=== PATIENT | female | born 1955 | race Caucasian/White ===

== ENCOUNTER 2017-06-13 18:19 | Inpatient (IN) | payer MEDICAID ==
[~2017-06-13] VITALS: Ht 157.5 cm; Wt 54.2 kg
[2017-06-13] MEDS ORDERED: VARE0.5T PO (18:36)
[2017-06-13] MEDS ORDERED: NAPR-874 PO (18:37)
[2017-06-13] MEDS ORDERED: FAMOTIDINE 20 MG/2 ML IVP ONE (19:00)
[2017-06-13] MEDS ORDERED: DICYCLOMINE 10 MG/ML, 2ML IM ONE (19:00)
[2017-06-13] MEDS ORDERED: SODIUM CHLORIDE 0.9% 1,000ML IVBOLUS ONE ×2 (19:00→21:30)
[2017-06-13] MEDS ORDERED: FAMOTIDINE 20 MG/2 ML ONE (19:27)
[2017-06-13 19:29] LABS: HEMATOCRIT 42.1 % (34.6-47.8); HEMOGLOBIN 14.1 g/dL (11.7-16.4)
[2017-06-13 19:37] LABS: BLOOD UREA NITROGEN 16 mg/dL (7-18)
[2017-06-13 19:42] LABS: ASPARTATE AMINO TRANSFERASE 188 U/L (15-37)
[2017-06-13] MEDS ORDERED: HYDROmorphone 1 MG/ML, 1ML IV ONE (20:30)
[2017-06-13] MEDS ORDERED: HYDROmorphone 1 MG/ML, 1ML ONE (20:34)
[2017-06-13 21:50] LABS: PH, VENOUS 7.236 pH (7.320-7.420)
[2017-06-13] MEDS ORDERED: D5%-0.45% NACL 1,000 ML IV SCH (22:30)
[2017-06-13] MEDS ORDERED: LORazepam 2 MG/ML, 1ML IVPush PRN (23:30)
[2017-06-13] MEDS ORDERED: METOCLOPRAMIDE 5 MG/ML, 2ML IVPush PRN (23:30)
[2017-06-13] MEDS ORDERED: PROMETHAZINE 25 MG/ML, 1ML IM PRN (23:30)
[2017-06-13] MEDS ORDERED: OMNIPAQUE 350 MG/ML, 100ML BOTTLE ONE (23:54)
[2017-06-14] MEDS: SODIUM CHLORIDE 0.9% 1,000 ML IV SCH ×2 (00:59→21:07)
[2017-06-14] MEDS: ONDANSETRON 2MG/ML, 2ML IVPush PRN ×5 (01:11→21:14)
[2017-06-14] MEDS: HYDROmorphone 2 MG/ML, 1ML IVPush PRN ×7 (01:12→21:14)
[2017-06-14 01:18] VITALS: BP 146/78
[2017-06-14 01:31] LABS: BLOOD UREA NITROGEN 12 mg/dL (7-18)
[2017-06-14] MEDS: NICOTINE 7 MG/24 HR PATCH.TD24 TD SCH ×2 (01:34→23:52)
[2017-06-14 03:06] LABS: PATH.CAST-FLAG NOT PRESENT; SPERM-FLAG NOT PRESENT; SRC-FLAG NOT PRESENT; XTAL-FLAG NOT PRESENT; YLC-FLAG NOT PRESENT
[2017-06-14 06:04] LABS: HEMATOCRIT 35.4 % (34.6-47.8); HEMOGLOBIN 12.1 g/dL (11.7-16.4); WHITE BLOOD COUNT 4.7 x10^3/uL (3.4-10)
[2017-06-14 06:19] LABS: ASPARTATE AMINO TRANSFERASE 107 U/L (15-37); BLOOD UREA NITROGEN 10 mg/dL (7-18)
[2017-06-14] MEDS ORDERED: POTASSIUM PHOSPHATE 44 MEQ in SODIUM CHLORIDE 0.9% 500 ML IV ONE (06:30)
[2017-06-14 07:10] VITALS: BP 117/70
[2017-06-14] MEDS: ENOXAPARIN 40 MG/0.4 ML SQ SCH (07:50)
[2017-06-14 15:10] VITALS: BP 115/75
[2017-06-14] MEDS: metroNIDAZOLE 500 MG TABLET PO SCH (17:45)
[2017-06-14 20:18] VITALS: BP 122/78
[2017-06-14] MEDS: LACTOBACILLUS CHEW TABLET PO SCH (21:07)
[2017-06-15 00:33] VITALS: BP 128/73
[2017-06-15] MEDS: HYDROmorphone 2 MG/ML, 1ML IVPush PRN ×7 (00:41→21:48)
[2017-06-15] MEDS: metroNIDAZOLE 500 MG TABLET PO SCH ×3 (00:43→16:41)
[2017-06-15] MEDS: SODIUM CHLORIDE 0.9% 1,000 ML IV SCH ×2 (03:59→09:35)
[2017-06-15] MEDS: ONDANSETRON 2MG/ML, 2ML IVPush PRN ×4 (03:59→18:34)
[2017-06-15 05:59] LABS: HEMATOCRIT 32.1 % (34.6-47.8); HEMOGLOBIN 10.9 g/dL (11.7-16.4); WHITE BLOOD COUNT 3.8 x10^3/uL (3.4-10)
[2017-06-15 06:04] VITALS: BP 131/64
[2017-06-15 06:11] LABS: BLOOD UREA NITROGEN 7 mg/dL (7-18)
[2017-06-15 06:22] LABS: ASPARTATE AMINO TRANSFERASE 73 U/L (15-37)
[2017-06-15] MEDS: LACTOBACILLUS CHEW TABLET PO SCH ×3 (08:07→21:48)
[2017-06-15] MEDS: ENOXAPARIN 40 MG/0.4 ML SQ SCH (08:08)
[2017-06-15] MEDS ORDERED: MAGNESIUM SULFATE PMX 2GM/50ML 50 ML IV ONE (09:00)
[2017-06-15] MEDS ORDERED: POTASSIUM CHLORIDE 40 MEQ in SODIUM CHLORIDE 0.9% 500 ML IV ONE (09:00)
[2017-06-15] MEDS ORDERED: POTASSIUM PHOSPHATE 44 MEQ in SODIUM CHLORIDE 0.9% 500 ML IV ONE (09:00)
[2017-06-15 15:30] VITALS: BP 141/75
[2017-06-15 19:56] VITALS: BP 145/71
[2017-06-15] MEDS: NICOTINE 7 MG/24 HR PATCH.TD24 TD SCH (23:48)
[2017-06-16] MEDS: metroNIDAZOLE 500 MG TABLET PO SCH ×3 (00:44→16:35)
[2017-06-16] MEDS: HYDROmorphone 2 MG/ML, 1ML IVPush PRN ×6 (00:44→21:18)
[2017-06-16 00:54] VITALS: BP 147/78
[2017-06-16] MEDS: ONDANSETRON 2MG/ML, 2ML IVPush PRN ×2 (03:53→13:38)
[2017-06-16 05:21] LABS: ASPARTATE AMINO TRANSFERASE 67 U/L (15-37); BLOOD UREA NITROGEN 2 mg/dL (7-18)
[2017-06-16 05:23] LABS: HEMATOCRIT 31.3 % (34.6-47.8); HEMOGLOBIN 10.9 g/dL (11.7-16.4); WHITE BLOOD COUNT 3.6 x10^3/uL (3.4-10)
[2017-06-16] MEDS: SODIUM CHLORIDE 0.9% 1,000 ML IV SCH ×2 (07:54→12:43)
[2017-06-16] MEDS: LACTOBACILLUS CHEW TABLET PO SCH ×3 (08:14→21:17)
[2017-06-16] MEDS: ENOXAPARIN 40 MG/0.4 ML SQ SCH (08:14)
[2017-06-16 08:20] VITALS: BP 141/79
[2017-06-16] MEDS ORDERED: MAGNESIUM SULFATE PMX 2GM/50ML 50 ML IV ONE (10:00)
[2017-06-16] MEDS: POTASSIUM ACID PHOSPHATE 500 MG TABLET.SOL PO SCH ×3 (11:15→21:17)
[2017-06-16] MEDS: POTASSIUM CHLORIDE 20 MEQ TAB.ER.PRT PO SCH ×2 (11:15→16:35)
[2017-06-16] MEDS: OXYcodone IR 5MG TABLET PO PRN (13:05)
[2017-06-16 16:00] VITALS: BP 145/73
[2017-06-16 19:37] VITALS: BP 139/74
[2017-06-17] MEDS: OXYcodone IR 5MG TABLET PO PRN ×4 (00:10→14:34)
[2017-06-17] MEDS: NICOTINE 7 MG/24 HR PATCH.TD24 TD SCH (00:10)
[2017-06-17] MEDS: metroNIDAZOLE 500 MG TABLET PO SCH ×3 (00:10→15:49)
[2017-06-17 00:57] VITALS: BP 153/86
[2017-06-17] MEDS: POTASSIUM ACID PHOSPHATE 500 MG TABLET.SOL PO SCH (03:57)
[2017-06-17] MEDS: HYDROmorphone 2 MG/ML, 1ML IVPush PRN (03:57)
[2017-06-17 05:43] LABS: BLOOD UREA NITROGEN 1 mg/dL (7-18)
[2017-06-17 06:00] LABS: HEMATOCRIT 32.9 % (34.6-47.8); HEMOGLOBIN 11.3 g/dL (11.7-16.4); WHITE BLOOD COUNT 3.7 x10^3/uL (3.4-10)
[2017-06-17 07:30] VITALS: BP 157/85
[2017-06-17] MEDS: POTASSIUM CHLORIDE 20 MEQ TAB.ER.PRT PO SCH (07:40)
[2017-06-17] MEDS: LACTOBACILLUS CHEW TABLET PO SCH ×2 (07:41→15:49)
[2017-06-17] MEDS: ENOXAPARIN 40 MG/0.4 ML SQ SCH (07:44)
[2017-06-17] MEDS ORDERED: MAGNESIUM OXIDE 400 MG TABLET PO SCH (09:00)
[2017-06-17] MEDS ORDERED: OXYC5TAB3 PO (14:18)
[2017-06-17] MEDS ORDERED: METR500T PO (14:18)
[2017-06-17 14:41] VITALS: BP 142/77
== END 2017-06-17 16:19 | disposition home or self-care (01) | DRG 439 ==
LOC: ED 20:26 → SUATTDRO 23:00 → EDIP 23:27 → 3NE 06-14 00:46
PROVIDERS: ATTEND Family Medicine
DX: K85.30 Drug induced acute pancreatitis without necrosis or infection (principal); B17.9 Acute viral hepatitis, unspecified; E87.2 Acidosis; A04.7 Enterocolitis due to Clostridium difficile; E83.39 Other disorders of phosphorus metabolism; E87.1 Hypo-osmolality and hyponatremia; D64.9 Anemia, unspecified; D75.89 Other specified diseases of blood and blood-forming organs; E86.0 Dehydration; F17.210 Nicotine dependence, cigarettes, uncomplicated; K29.70 Gastritis, unspecified, without bleeding; M06.9 Rheumatoid arthritis, unspecified; M79.7 Fibromyalgia; T44.995A Adverse effect of other drug primarily affecting the autonomic nervous system, initial encounter; Y92.89 Other specified places as the place of occurrence of the external cause; Z90.49 Acquired absence of other specified parts of digestive tract
CPT/HCPCS: 36415; 74000; 74020; 74177; 74181; 80048; 80053; 80061; 80307; 80329; 81001; 81003; 82010; 82150; 82607; 82746; 82803; 83605; 83690; 83735; 84100; 84439; 84443; 85025; 86704; 86706; 86708; 86803; 87324; 87340; 87493; 93005; 96361; 96372; 96374; 96375; J1170; J1650; J2405; J3480; Q9967; G0480; J0500; J3475; J7030; J7040; S0028

== ENCOUNTER → 2018-05-30 | Outpatient (CLI) | payer OTHER ==
[~2018-05-30] MED LIST: CALC-534 PO; CHOL100012 PO; CLON0.5T11 PO; HYDR-3240 PO; IBUP-1223 PO; METR500T PO; MULT-658 PO; NAPR250T6 PO; OXYC5TAB3 PO; VARE0.5T PO
[2018-05-30 10:49] LABS: BASOPHILS # (AUTO) 0.04 x10^3/uL (0-0.1); BASOPHILS % (AUTO) 1 % (0-1); EOSINOPHILS # (AUTO) 0.11 x10^3/uL (0-0.4); EOSINOPHILS % (AUTO) 2 % (1-7); LYMPHOCYTES # (AUTO) 1.55 x10^3/uL (1-3.4); LYMPHOCYTES % (AUTO) 24 % (22-44); MD NO; MEAN CORPUSCULAR HEMOGLOBIN 31.6 pg (27.0-34.8); MEAN CORPUSCULAR VOLUME 93.1 fL (80-100); MEAN PLATELET VOLUME 6.6 fL (7.4-10.4); MONOCYTES # (AUTO) 0.38 x10^3/uL (0.2-0.8); MONOCYTES % (AUTO) 6 % (2-9); NEUTROPHILS # (AUTO) 4.34 x10^3/uL (1.8-6.8); NEUTROPHILS % (AUTO) 68 % (42-75); PLATELET COUNT 327 x10^3/uL (130-400); RED BLOOD COUNT 4.73 x10^6/uL (3.82-5.3); RED CELL DISTRIBUTION WIDTH 15.4 % (9.6-15.2)
[2018-05-30 10:56] LABS: ANION GAP 11 mmol/L (5-15); CALCIUM 8.8 mg/dL (8.5-10.1); CHLORIDE 104 mmol/L (98-107); CREATININE 0.68 mg/dL (0.55-1.02)
== END | disposition home or self-care (01) ==
LOC: STAR 09:45
PROVIDERS: ATTEND Obstetrics & Gynecology Female Pelvic Medicine and Reconstructive Surgery
DX: Z01.818 Encounter for other preprocedural examination (principal); N81.4 Uterovaginal prolapse, unspecified
CPT/HCPCS: 36415; 71046; 80048; 85025; 93005

== ENCOUNTER 2018-06-09 08:27 | Day surgery (SDC) | payer OTHER ==
[~2018-06-09] VITALS: Ht 157.5 cm; Wt 56.0 kg
[2018-06-09] MEDS ORDERED: BUPIVACAINE/PF-EPI 0.25% 1:200K ONE ×2 (08:49→11:10)
[2018-06-09] MEDS ORDERED: FLUORESCEIN SODIUM 500 MG/5 ML ONE (08:49)
[2018-06-09] MEDS ORDERED: THROMBIN 5,000 UNIT VIAL TP ONE (08:49)
[2018-06-09] MEDS ORDERED: NEOMY/POLYMYXIN B GU IRR. 1 ML IRRIG ONE (08:49)
[2018-06-09 08:52] VITALS: BP 137/91
[2018-06-09] MEDS ORDERED: LACTATED RINGERS 1,000 ML IV SCH ×2 (08:55→13:22)
[2018-06-09] MEDS ORDERED: LIDOCAINE-MPF 1%, 5ML ONE (08:58)
[2018-06-09] MEDS ORDERED: LIDOCAINE-MPF 1%, 2ML INFIL ONE (09:00)
[2018-06-09] MEDS ORDERED: MIDAZOLAM 1 MG/ML, 2ML ONE (10:13)
[2018-06-09] MEDS ORDERED: FENTANYL PF 250 MCG/5ML ONE (10:13)
[2018-06-09] MEDS ORDERED: PROMETHAZINE 25 MG/ML, 1ML IV PRN (10:30)
[2018-06-09] MEDS ORDERED: DIAZEPAM 5 MG/ML, 2ML IVPush PRN (10:30)
[2018-06-09] MEDS ORDERED: ONDANSETRON 2MG/ML, 2ML IV PRN (10:30)
[2018-06-09] MEDS ORDERED: LIDOCAINE 4%, 4 ML SYR/CANN TP ONE (10:30)
[2018-06-09] MEDS ORDERED: HYDROmorphone 1 MG/ML, 1ML IV PRN (10:30)
[2018-06-09] MEDS ORDERED: PHENYLEPHRINE 10 MG/ML ONE (10:30)
[2018-06-09] MEDS ORDERED: ACETAMINOPHEN 325 MG TABLET PO PRN (10:30)
[2018-06-09] MEDS ORDERED: ONDANSETRON 2MG/ML, 2ML ONE ×2 (10:30→12:17)
[2018-06-09] MEDS ORDERED: OXYcodone 5 MG/5 ML ORAL.SOL UDC PO PRN (10:30)
[2018-06-09] MEDS ORDERED: ONDANSETRON ODT 8 MG PO PRN (10:30)
[2018-06-09] MEDS ORDERED: BUPIVACAINE/PF 0.5% ONE (10:57)
[2018-06-09] MEDS ORDERED: EPINEPHRINE 1 MG/ML, 1ML ONE (10:57)
[2018-06-09] MEDS ORDERED: SUCCINYLCHOLINE 20 MG/ML, 10ML ONE (12:17)
[2018-06-09] MEDS ORDERED: PROPOFOL 10 MG/ML, 20ML ONE (12:17)
[2018-06-09] MEDS ORDERED: ROCURONIUM 10MG/ML,5ML ONE (12:17)
[2018-06-09] MEDS ORDERED: DEXAMETHASONE 4 MG/ML, 1ML ONE (12:17)
[2018-06-09] MEDS ORDERED: NEOSTIGMINE 1 MG/ML, 10ML ONE (12:17)
[2018-06-09] MEDS ORDERED: CEFAZOLIN 1,000 MG ONE (12:17)
[2018-06-09] MEDS ORDERED: GLYCOPYRROLATE 0.2MG/1ML, 5ML ONE (12:17)
[2018-06-09] MEDS ORDERED: FENTANYL PF 100 MCG/2ML ONE ×2 (12:42→13:37)
[2018-06-09] MEDS ORDERED: PROMETHAZINE 12.5 MG SUPP PR ONE (13:30)
[2018-06-09] MEDS ORDERED: HYDROcodone/APAP 5/325 TABLET PO PRN (13:30)
[2018-06-09] MEDS ORDERED: ONDANSETRON 2MG/ML, 2ML IVPush PRN (13:30)
[2018-06-09] MEDS ORDERED: IBUPROFEN 600 MG TABLET PO PRN (13:30)
[2018-06-09] MEDS ORDERED: OXYcodone 5 MG/5 ML ORAL.SOL UDC ONE (13:32)
[2018-06-09] MEDS ORDERED: ACETAMINOPHEN 650 MG/20.3 ML UDC ONE (13:33)
[2018-06-09] MEDS: FENTANYL PF 100 MCG/2ML IV PRN ×2 (13:40→14:00)
[2018-06-09] MEDS ORDERED: LORazepam 2 MG/ML, 1ML ONE (13:44)
[2018-06-09] MEDS: LORazepam 2 MG/ML, 1ML IVPush PRN ×2 (13:45→14:20)
[2018-06-09] MEDS ORDERED: HYDROmorphone 2 MG/ML, 1ML ONE (14:34)
== END 2018-06-09 18:30 | disposition home or self-care (01) ==
LOC: OUT 08:27
PROVIDERS: ATTEND Obstetrics & Gynecology Female Pelvic Medicine and Reconstructive Surgery
DX: N81.4 Uterovaginal prolapse, unspecified (principal); N39.3 Stress incontinence (female) (male); N83.8 Other noninflammatory disorders of ovary, fallopian tube and broad ligament; D64.9 Anemia, unspecified; G43.909 Migraine, unspecified, not intractable, without status migrainosus; F32.9 Major depressive disorder, single episode, unspecified; F41.9 Anxiety disorder, unspecified; F17.210 Nicotine dependence, cigarettes, uncomplicated; Z90.49 Acquired absence of other specified parts of digestive tract; Z87.39 Personal history of other diseases of the musculoskeletal system and connective tissue; Z98.890 Other specified postprocedural states; Z90.710 Acquired absence of both cervix and uterus; Z88.6 Allergy status to analgesic agent; Z88.8 Allergy status to other drugs, medicaments and biological substances; Z85.828 Personal history of other malignant neoplasm of skin; Z85.41 Personal history of malignant neoplasm of cervix uteri; Z79.899 Other long term (current) drug therapy
CPT/HCPCS: 57260; 57288; 57425; 58661; 88302; C1771; C1781; J0171; J0330; J0690; J1100; J1170; J2060; J2250; J2370; J2405; J2704; J2710; J3010; J3490; J7120

== ENCOUNTER → 2018-09-26 | Outpatient (CLI) | payer OTHER ==
[~2018-09-26] MED LIST changes: +ACET650S12 PR; +ALPR0.254 PO; +AMOX200S PO; +ERTA1VIA4 IV; +METO50TA82 PO; +MICA100V3 IV; +OMNIPAQUE 350 MG/ML, 100ML BOTTLE ONE; +ONDA4TAB13 PO; +POLY17PO5 PO; +QUET25TA PO; +SULF1TAB24 PO; +TRAM50TA2 PO; +Tpn Per Pharmacy MC; +VANC1VIA3 PO
== END | disposition home or self-care (01) ==
LOC: CFH 11:28
PROVIDERS: ATTEND Surgery
DX: K76.0 Fatty (change of) liver, not elsewhere classified (principal); K57.30 Diverticulosis of large intestine without perforation or abscess without bleeding; N28.1 Cyst of kidney, acquired
CPT/HCPCS: 74177; 82565; Q9967

== ENCOUNTER 2018-12-04 17:21 | Inpatient (IN) | payer OTHER ==
[~2018-12-04] VITALS: Ht 154.9 cm; Wt 52.9 kg
[~2018-12-04 17:21] MED LIST changes: -OMNIPAQUE 350 MG/ML, 100ML BOTTLE ONE
--- NOTE | 2018-12-04 17:53 | NUR ---
PT REPORTS HAVING SURGERY IN MAY FOR HERNIATED BLADDER AND RECTUM. DURING THAT TIME SHE RECIEVED A PERFORIATED BOWEL WITH SEPSIS AND WAS IN THE ICU FOR 10 DAYS. REPORTS THIS IS HER 4TH UTI SINCE THEN. REPORTS PAIN WITH URINATION, AND ABD PAIN SINCE SATURDAY.
[2018-12-04 17:59] LABS: MEAN CORPUSCULAR HEMOGLOBIN 34.5 pg (27.0-34.8); MEAN CORPUSCULAR HGB CONC 34.3 g/dL (32.4-35.8); MEAN CORPUSCULAR VOLUME 100.6 fL (80-100); MEAN PLATELET VOLUME 6.1 fL (7.4-10.4); PLATELET COUNT 557 x10^3/uL (130-400); RED CELL DISTRIBUTION WIDTH 15.3 % (9.6-15.2)
[2018-12-04] MEDS ORDERED: SODIUM CHLORIDE FLUSH 10ML SYR IVF ONE (18:00)
[2018-12-04 18:10] LABS: ALANINE AMINOTRANSFERASE 72 U/L (12-78); ALBUMIN 3.8 g/dL (3.4-5.0); ANION GAP 12 mmol/L (5-15); CALCIUM 8.5 mg/dL (8.5-10.1); CHLORIDE 110 mmol/L (98-107)
[2018-12-04 18:13] LABS: ALKALINE PHOSPHATASE 108 U/L (45-117); BILIRUBIN,TOTAL 0.5 mg/dL (0.2-1.0); CREATININE 0.61 mg/dL (0.55-1.02); TOTAL PROTEIN 6.9 g/dL (6.4-8.2)
[2018-12-04 18:21] LABS: CULTURE INDICATED? YES; MICROSCOPIC AUTO
[2018-12-04] MEDS ORDERED: ONDANSETRON 2MG/ML, 2ML ONE (18:26)
[2018-12-04] MEDS ORDERED: HYDROmorphone 1 MG/ML, 1ML ONE ×3 (18:27→20:53)
[2018-12-04 18:30] LABS: MD YES
[2018-12-04] MEDS ORDERED: ONDANSETRON 2MG/ML, 2ML IVPush ONE (18:30)
[2018-12-04] MEDS: HYDROmorphone 2 MG/ML, 1ML IVPush PRN ×2 (18:31→19:56)
[2018-12-04 18:32] LABS: BAND#(MANUAL) 0.07 x10^3/uL; BANDS%(MANUAL) 1 % (0-7); EOS#(MANUAL) 0.22 x10^3/uL (0.0-0.4); EOS% (MANUAL) 3 % (1-7); LYMPHS% (MANUAL) 52 % (22-44); MONOS#(MANUAL) 0.66 x10^3/uL (0.3-2.7); MONOS% (MANUAL) 9 % (2-9); SEG#(MANUAL) 2.56 x10^3/uL (1.8-6.8); SEGS% (MANUAL) 35 % (42-75)
[2018-12-04 18:33] LABS: <PLATELET ESTIMATE> INCREASED; <PLT MORPHOLOGY> NORMAL PLT MORPH; ANISOCYTOSIS 1+
--- NOTE | 2018-12-04 18:35 | NUR ---
PT MEDICATED PER ORDER. PT TAKEN TO CT.
[2018-12-04] MEDS ORDERED: OMNIPAQUE 350 MG/ML, 100ML BOTTLE ONE (18:54)
--- NOTE | 2018-12-04 18:55 | NUR ---
REPORT GIVEN TO DELFINO SILVERMAN.
--- NOTE | 2018-12-04 18:56 | NUR ---
BS REPORT OF PT FROM HERRERA BOND, AND ASSUMING CARE OF PT.
--- NOTE | 2018-12-04 19:56 | NUR ---
PT MEDCIATED PER MAR FOR PAIN. VSS AND UPDATED IN EMR.
[2018-12-04] MEDS ORDERED: SULFAMETH./TRIMETHOPRIM 20 ML in DEXTROSE 5% 500 ML IV ONE (20:00)
--- NOTE | 2018-12-04 20:37 | NUR ---
TASK RN: REPORT CALLED TO HERRERA MILLER. ABX REQUESTED FROM PHARMACY
--- NOTE | 2018-12-04 20:51 | NUR ---
TASK RN: PT CO CONTINUED PAIN. ERP AWARE. ORDERS RECEIVED. PT MEDICATED PER EMAR FOR PAIN AND WITH ABX. NO BC PER ERP
[2018-12-04] MEDS ORDERED: HYDROmorphone 1 MG/ML, 1ML IV ONE (21:00)
[2018-12-04] MEDS ORDERED: HYDROmorphone 1 MG/ML, 1ML IV PRN (21:30)
[2018-12-04] MEDS ORDERED: ERTAPENEM 1 GM in SODIUM CHLORIDE 0.9% 50 ML IV SCH (21:30)
[2018-12-04] MEDS: BISACODYL 10 MG SUPP PR SCH ×2 (21:30→22:38)
[2018-12-04 21:38] VITALS: BP 120/79
[2018-12-04] MEDS ORDERED: HYDROmorphone 2 MG/ML, 1ML ONE (22:24)
[2018-12-04] MEDS: SODIUM CHLORIDE 0.9% 1,000 ML IV SCH (22:36)
[2018-12-04] MEDS: HEPARIN 5,000 UNITS/ML, 1ML SQ SCH (22:37)
[2018-12-04] MEDS: QUETIAPINE 25MG TABLET PO SCH ×2 (22:38→22:56)
[2018-12-04] MEDS: ONDANSETRON 2MG/ML, 2ML IVPush PRN (23:44)
[2018-12-05 01:27] VITALS: BP 112/68
[2018-12-05] MEDS: HYDROmorphone 2 MG/ML, 1ML IV PRN ×5 (01:59→15:31)
[2018-12-05 05:55] LABS: BASOPHILS # (AUTO) 0.04 x10^3/uL (0-0.1); BASOPHILS % (AUTO) 1 % (0-1); EOSINOPHILS # (AUTO) 0.01 x10^3/uL (0-0.4); EOSINOPHILS % (AUTO) 0 % (1-7); LYMPHOCYTES # (AUTO) 1.49 x10^3/uL (1-3.4); LYMPHOCYTES % (AUTO) 26 % (22-44); MD NO; MEAN CORPUSCULAR HEMOGLOBIN 34.6 pg (27.0-34.8); MEAN CORPUSCULAR HGB CONC 34.6 g/dL (32.4-35.8); MEAN CORPUSCULAR VOLUME 100.1 fL (80-100); MEAN PLATELET VOLUME 6.6 fL (7.4-10.4); MONOCYTES # (AUTO) 0.35 x10^3/uL (0.2-0.8); MONOCYTES % (AUTO) 6 % (2-9); NEUTROPHILS # (AUTO) 3.74 x10^3/uL (1.8-6.8); NEUTROPHILS % (AUTO) 67 % (42-75); PLATELET COUNT 401 x10^3/uL (130-400); RED BLOOD COUNT 3.67 x10^6/uL (3.82-5.3); RED CELL DISTRIBUTION WIDTH 15.1 % (9.6-15.2)
[2018-12-05] MEDS: ONDANSETRON 2MG/ML, 2ML IVPush PRN (05:57)
[2018-12-05] MEDS: HEPARIN 5,000 UNITS/ML, 1ML SQ SCH ×3 (05:57→23:08)
[2018-12-05 05:58] LABS: CHLORIDE 105 mmol/L (98-107)
[2018-12-05] MEDS: METOPROLOL TARTRATE 50 MG TABLET PO SCH ×2 (06:00→19:47)
[2018-12-05] MEDS: QUETIAPINE 25MG TABLET PO SCH ×3 (06:00→23:08)
[2018-12-05 06:03] LABS: ALANINE AMINOTRANSFERASE 217 U/L (12-78); ALBUMIN 3.4 g/dL (3.4-5.0); ALKALINE PHOSPHATASE 171 U/L (45-117); ANION GAP 10 mmol/L (5-15); BILIRUBIN,TOTAL 0.6 mg/dL (0.2-1.0); CALCIUM 7.9 mg/dL (8.5-10.1); CREATININE 0.65 mg/dL (0.55-1.02); TOTAL PROTEIN 6.2 g/dL (6.4-8.2)
[2018-12-05 07:04] VITALS: BP 136/75
[2018-12-05] MEDS: BISACODYL 10 MG SUPP PR SCH (08:35)
[2018-12-05] MEDS: SODIUM CHLORIDE 0.9% 1,000 ML IV SCH ×2 (08:35→21:42)
[2018-12-05] MEDS: MEROPENEM 1 GM in SODIUM CHLORIDE 0.9% 100 ML IV SCH ×3 (08:35→23:08)
[2018-12-05 15:47] VITALS: BP 124/86
[2018-12-05] MEDS ORDERED: OXYcodone/APAP 5/325MG TABLET PO PRN (17:00)
[2018-12-05] MEDS: OXYcodone IR 5MG TABLET PO PRN (19:47)
[2018-12-05 20:06] VITALS: BP 118/65
[2018-12-05] MEDS: DOCUSATE 100 MG CAPSULE PO SCH (21:43)
[2018-12-06 01:54] VITALS: BP 98/64
[2018-12-06] MEDS: OXYcodone IR 5MG TABLET PO PRN ×5 (02:04→23:37)
[2018-12-06 02:37] VITALS: BP 106/71
[2018-12-06 04:27] LABS: BASOPHILS # (AUTO) 0.03 x10^3/uL (0-0.1); BASOPHILS % (AUTO) 1 % (0-1); EOSINOPHILS # (AUTO) 0.07 x10^3/uL (0-0.4); EOSINOPHILS % (AUTO) 2 % (1-7); LYMPHOCYTES # (AUTO) 1.37 x10^3/uL (1-3.4); LYMPHOCYTES % (AUTO) 39 % (22-44); MD NO; MEAN CORPUSCULAR HEMOGLOBIN 34.9 pg (27.0-34.8); MEAN CORPUSCULAR HGB CONC 34.9 g/dL (32.4-35.8); MEAN CORPUSCULAR VOLUME 100.1 fL (80-100); MEAN PLATELET VOLUME 6.4 fL (7.4-10.4); MONOCYTES # (AUTO) 0.24 x10^3/uL (0.2-0.8); MONOCYTES % (AUTO) 7 % (2-9); NEUTROPHILS % (AUTO) 51 % (42-75); PLATELET COUNT 280 x10^3/uL (130-400); RED BLOOD COUNT 3.24 x10^6/uL (3.82-5.3); RED CELL DISTRIBUTION WIDTH 15.1 % (9.6-15.2)
[2018-12-06 04:31] LABS: ALBUMIN 2.6 g/dL (3.4-5.0); ANION GAP 5 mmol/L (5-15); CALCIUM 7.7 mg/dL (8.5-10.1); CHLORIDE 108 mmol/L (98-107)
[2018-12-06 05:14] LABS: ALANINE AMINOTRANSFERASE 96 U/L (12-78); ALKALINE PHOSPHATASE 146 U/L (45-117); BILIRUBIN,TOTAL 0.7 mg/dL (0.2-1.0); CREATININE 0.72 mg/dL (0.55-1.02); TOTAL PROTEIN 5.1 g/dL (6.4-8.2)
[2018-12-06] MEDS: METOPROLOL TARTRATE 50 MG TABLET PO SCH ×2 (05:17→17:24)
[2018-12-06] MEDS ORDERED: SODIUM CHLORIDE 0.9% 1,000 ML IV SCH (07:45)
[2018-12-06] MEDS: POLYETHYLENE GLYCOL 17 GM PACKET PO SCH (08:00)
[2018-12-06] MEDS: DOCUSATE 100 MG CAPSULE PO SCH ×2 (08:00→23:29)
[2018-12-06] MEDS: QUETIAPINE 25MG TABLET PO SCH ×3 (08:01→23:29)
[2018-12-06] MEDS: BISACODYL 10 MG SUPP PR SCH (08:01)
[2018-12-06] MEDS: HEPARIN 5,000 UNITS/ML, 1ML SQ SCH ×3 (08:01→23:29)
[2018-12-06] MEDS: MEROPENEM 1 GM in SODIUM CHLORIDE 0.9% 100 ML IV SCH ×3 (08:01→23:29)
[2018-12-06 08:31] VITALS: BP 100/65
[2018-12-06 14:45] VITALS: BP 122/85
[2018-12-06 17:24] VITALS: BP 120/73
[2018-12-06 19:04] VITALS: BP 113/74
[2018-12-07 00:26] VITALS: BP 109/71
[2018-12-07] MEDS: OXYcodone IR 5MG TABLET PO PRN ×4 (01:32→23:27)
[2018-12-07] MEDS: METOPROLOL TARTRATE 50 MG TABLET PO SCH ×2 (06:14→17:52)
[2018-12-07 08:29] VITALS: BP 103/64
[2018-12-07] MEDS: BISACODYL 10 MG SUPP PR SCH (09:00)
[2018-12-07] MEDS: DOCUSATE 100 MG CAPSULE PO SCH ×2 (09:25→20:26)
[2018-12-07] MEDS: QUETIAPINE 25MG TABLET PO SCH ×3 (09:25→23:12)
[2018-12-07] MEDS: POLYETHYLENE GLYCOL 17 GM PACKET PO SCH (09:25)
[2018-12-07] MEDS: HEPARIN 5,000 UNITS/ML, 1ML SQ SCH ×3 (09:25→23:12)
[2018-12-07] MEDS: MEROPENEM 1 GM in SODIUM CHLORIDE 0.9% 100 ML IV SCH ×3 (09:25→23:12)
[2018-12-07 11:27] LABS: ALANINE AMINOTRANSFERASE 93 U/L (12-78); ALBUMIN 3.2 g/dL (3.4-5.0); ANION GAP 4 mmol/L (5-15); CALCIUM 9.2 mg/dL (8.5-10.1); CHLORIDE 102 mmol/L (98-107); CREATININE 0.78 mg/dL (0.55-1.02)
[2018-12-07 11:30] LABS: ALKALINE PHOSPHATASE 179 U/L (45-117); TOTAL PROTEIN 6.6 g/dL (6.4-8.2)
[2018-12-07 12:09] LABS: BASOPHILS % (AUTO) 0 % (0-1); EOSINOPHILS # (AUTO) 0.11 x10^3/uL (0-0.4); EOSINOPHILS % (AUTO) 2 % (1-7); LYMPHOCYTES # (AUTO) 2.04 x10^3/uL (1-3.4); LYMPHOCYTES % (AUTO) 29 % (22-44); MD NO; MEAN CORPUSCULAR HEMOGLOBIN 33.8 pg (27.0-34.8); MEAN CORPUSCULAR HGB CONC 33.1 g/dL (32.4-35.8); MEAN CORPUSCULAR VOLUME 102.2 fL (80-100); MEAN PLATELET VOLUME 6.7 fL (7.4-10.4); MONOCYTES # (AUTO) 0.27 x10^3/uL (0.2-0.8); MONOCYTES % (AUTO) 4 % (2-9); NEUTROPHILS # (AUTO) 4.62 x10^3/uL (1.8-6.8); NEUTROPHILS % (AUTO) 66 % (42-75); PLATELET COUNT 360 x10^3/uL (130-400)
[2018-12-07 13:38] VITALS: BP 124/84
[2018-12-07] MEDS ORDERED: DIPHENHYDRAMINE 50 MG CAPSULE PO PRN (15:00)
[2018-12-07] MEDS: PHENAZOPYRIDINE 200 MG TABLET PO PRN (15:12)
[2018-12-07 20:10] VITALS: BP 108/72
[2018-12-08 01:10] VITALS: BP 111/75
[2018-12-08 04:28] VITALS: BP 111/78
[2018-12-08 05:09] LABS: HCT (SEDRATE) 39.6 % (34.6-47.8)
[2018-12-08 05:16] LABS: CALCIUM 9.1 mg/dL (8.5-10.1); CHLORIDE 102 mmol/L (98-107)
[2018-12-08 05:28] LABS: ALANINE AMINOTRANSFERASE 81 U/L (12-78); ALBUMIN 3.3 g/dL (3.4-5.0); ALKALINE PHOSPHATASE 176 U/L (45-117); ANION GAP 5 mmol/L (5-15); CREATININE 0.92 mg/dL (0.55-1.02)
[2018-12-08] MEDS: METOPROLOL TARTRATE 50 MG TABLET PO SCH ×2 (06:00→18:27)
[2018-12-08] MEDS: QUETIAPINE 25MG TABLET PO SCH ×3 (07:34→23:12)
[2018-12-08] MEDS: HEPARIN 5,000 UNITS/ML, 1ML SQ SCH ×3 (07:34→23:12)
[2018-12-08] MEDS: MEROPENEM 1 GM in SODIUM CHLORIDE 0.9% 100 ML IV SCH ×3 (07:34→23:13)
[2018-12-08] MEDS: BISACODYL 10 MG SUPP PR SCH (08:12)
[2018-12-08] MEDS: DOCUSATE 100 MG CAPSULE PO SCH ×2 (08:12→19:31)
[2018-12-08] MEDS: POLYETHYLENE GLYCOL 17 GM PACKET PO SCH (08:12)
[2018-12-08 08:45] VITALS: BP 90/64
[2018-12-08 15:00] VITALS: BP 107/73
[2018-12-08] MEDS: PHENAZOPYRIDINE 200 MG TABLET PO PRN (19:46)
[2018-12-08 20:28] VITALS: BP 100/68
[2018-12-09 03:03] VITALS: BP 103/68
[2018-12-09] MEDS: METOPROLOL TARTRATE 50 MG TABLET PO SCH (06:18)
[2018-12-09] MEDS: QUETIAPINE 25MG TABLET PO SCH ×2 (06:40→14:31)
[2018-12-09] MEDS: HEPARIN 5,000 UNITS/ML, 1ML SQ SCH ×2 (06:40→14:31)
[2018-12-09] MEDS: MEROPENEM 1 GM in SODIUM CHLORIDE 0.9% 100 ML IV SCH ×2 (06:40→14:31)
[2018-12-09] MEDS: PHENAZOPYRIDINE 200 MG TABLET PO PRN (08:22)
[2018-12-09] MEDS: POLYETHYLENE GLYCOL 17 GM PACKET PO SCH (08:22)
[2018-12-09] MEDS: BISACODYL 10 MG SUPP PR SCH (08:23)
[2018-12-09] MEDS: DOCUSATE 100 MG CAPSULE PO SCH (08:23)
[2018-12-09 09:10] VITALS: BP 99/66
[2018-12-09 14:00] VITALS: BP 123/82
[2018-12-09] MEDS ORDERED: MERO1VIA15 IV (15:53)
== END 2018-12-09 17:40 | disposition home or self-care (01) | DRG 389 ==
LOC: ED 19:56 → 4WST 20:01 → ED 20:28 → 3NW 12-06 02:21
PROVIDERS: ADMIT Hospitalist; ATTEND Hospitalist
PROC: 02HV33Z Insertion of Infusion Device into Superior Vena Cava, Percutaneous Approach (ICD-10-PCS; principal; 2018-12-08)
PROC: B5181ZA Fluoroscopy of Superior Vena Cava using Low Osmolar Contrast, Guidance (ICD-10-PCS; 2018-12-08)
PROC: B548ZZA Ultrasonography of Superior Vena Cava, Guidance (ICD-10-PCS; 2018-12-08)
DX: K56.600 Partial intestinal obstruction, unspecified as to cause (principal); F11.20 Opioid dependence, uncomplicated; G93.40 Encephalopathy, unspecified; N30.90 Cystitis, unspecified without hematuria; B96.20 Unspecified Escherichia coli [E. coli] as the cause of diseases classified elsewhere; F17.210 Nicotine dependence, cigarettes, uncomplicated; F29 Unspecified psychosis not due to a substance or known physiological condition; I48.91 Unspecified atrial fibrillation; M79.7 Fibromyalgia; N20.0 Calculus of kidney; Z16.12 Extended spectrum beta lactamase (ESBL) resistance; Z79.2 Long term (current) use of antibiotics; Z83.3 Family history of diabetes mellitus; Z85.41 Personal history of malignant neoplasm of cervix uteri; Z86.19 Personal history of other infectious and parasitic diseases; Z90.710 Acquired absence of both cervix and uterus; Z88.6 Allergy status to analgesic agent; Z88.8 Allergy status to other drugs, medicaments and biological substances; Z82.49 Family history of ischemic heart disease and other diseases of the circulatory system; R00.0 Tachycardia, unspecified
CPT/HCPCS: 36415; 36573; 74018; 74177; 80053; 81001; 82607; 83690; 85025; 85651; 86140; 87077; 87086; 87184; 87186; 96374; G0378; J1170; J1335; J1644; J2185; J2405; Q9967; C1751; J7030; J7060

== ENCOUNTER 2018-12-25 22:10 | Emergency (ER) | payer OTHER, MEDICARE ==
[~2018-12-25] VITALS: Ht 154.9 cm; Wt 47.0 kg
[~2018-12-25 22:10] MED LIST changes: +MERO1VIA15 IV; -QUET25TA PO; +QUET25TA7 PO
[2018-12-25] MEDS ORDERED: MEROPENEM 1 GM in SODIUM CHLORIDE 0.9% 100 ML IV ONE (22:30)
[2018-12-25] MEDS ORDERED: HYDROmorphone 1 MG/ML, 1ML ONE ×2 (22:39→23:24)
[2018-12-25 22:47] LABS: MEAN CORPUSCULAR HEMOGLOBIN 34.7 pg (27.0-34.8); MEAN CORPUSCULAR HGB CONC 34.7 g/dL (32.4-35.8); MEAN CORPUSCULAR VOLUME 99.9 fL (80-100); MEAN PLATELET VOLUME 6.6 fL (7.4-10.4); PLATELET COUNT 330 x10^3/uL (130-400); RED BLOOD COUNT 4.18 x10^6/uL (3.82-5.3); RED CELL DISTRIBUTION WIDTH 15.3 % (9.6-15.2)
[2018-12-25] MEDS: HYDROmorphone 2 MG/ML, 1ML IVPush PRN ×2 (22:53→23:32)
--- NOTE | 2018-12-25 22:54 | NUR ---
MED REQ TUBED TO PHARM. PT MEDICATED PER DEC. PT CRYING AND BELLIGERENT AT TIMES. FAMILY NOW AT BEDSIDE. PT ABLE TO AMBULATE TO RESTROOM AND BACK WITH STEADY GAIT.
[2018-12-25 22:55] LABS: ALANINE AMINOTRANSFERASE 75 U/L (12-78); ALBUMIN 3.6 g/dL (3.4-5.0); ANION GAP 8 mmol/L (5-15); CALCIUM 8.6 mg/dL (8.5-10.1); CHLORIDE 109 mmol/L (98-107); CREATININE 0.58 mg/dL (0.55-1.02)
[2018-12-25 22:57] LABS: ALKALINE PHOSPHATASE 132 U/L (45-117); BILIRUBIN,TOTAL 0.6 mg/dL (0.2-1.0); TOTAL PROTEIN 6.7 g/dL (6.4-8.2)
[2018-12-25 23:08] LABS: MICROSCOPIC AUTO
[2018-12-25 23:09] LABS: CULTURE INDICATED? NO
--- NOTE | 2018-12-25 23:18 | NUR ---
PT WAS FOUND TO BE 86%RA. PT STATES NO RELIEF FROM PAIN MEDICATION. PT PLACED ON 2LNC AND NOW SATTING 97%. ABX INFUSING POST BCX2. POC DISCUSSED. PT AND FAMILY DENY FURTHER NEEDS AT THIS TIME.
--- NOTE | 2018-12-25 23:32 | NUR ---
PT MEDICATED PER MAR FOR COMPLAINT OF INCREASING PAIN. PT TO CT NOW.
[2018-12-25] MEDS ORDERED: OMNIPAQUE 350 MG/ML, 100ML BOTTLE ONE (23:38)
[2018-12-25 23:57] LABS: MD YES
[2018-12-26] MEDS ORDERED: SODIUM CHLORIDE 0.9% 1,000ML IVBOLUS ONE
[2018-12-26 00:01] LABS: ANISOCYTOSIS 1+; BASOS#(MANUAL) 0.06 x10^3/uL (0-0.1); BASOS% (MANUAL) 1 % (0-1); EOS#(MANUAL) 0.81 x10^3/uL (0.0-0.4); EOS% (MANUAL) 13 % (1-7); LYMPH#(MANUAL) 2.54 x10^3/uL (1-3.4); LYMPHS% (MANUAL) 41 % (22-44); MONOS#(MANUAL) 0.25 x10^3/uL (0.3-2.7); MONOS% (MANUAL) 4 % (2-9); REACTIVE LYMPHS # (MANUAL) 0.74 x10^3/uL (0-0); REACTIVE LYMPHS % (MANUAL) 12 % (0-0); SEGS% (MANUAL) 29 % (42-75)
[2018-12-26 00:02] LABS: <PLATELET ESTIMATE> ADEQUATE; <PLT MORPHOLOGY> NORMAL PLT MORPH
[2018-12-26] MEDS ORDERED: HYDROmorphone 1 MG/ML, 1ML IV ONE (00:30)
[2018-12-26] MEDS ORDERED: HYDROmorphone 1 MG/ML, 1ML ONE (00:31)
--- NOTE | 2018-12-26 00:51 | NUR ---
PT MEDICATED AGAIN PER DEC. POC DISCUSSED. PO CHALLENGE INITIATED. PT AND SPOUSE DENY FURTHER NEEDS AT THIS TIME.
[2018-12-26 02:27] VITALS: BP 113/78
== END 2018-12-26 02:29 | disposition home or self-care (01) ==
LOC: ED 23:59
DX: G89.29 Other chronic pain (principal); K56.7 Ileus, unspecified; R10.9 Unspecified abdominal pain; F17.200 Nicotine dependence, unspecified, uncomplicated; Z90.89 Acquired absence of other organs; Z90.710 Acquired absence of both cervix and uterus; Z90.722 Acquired absence of ovaries, bilateral
CPT/HCPCS: 36415; 74177; 80053; 81001; 83605; 83690; 85025; 87040; 96365; 96375; 96376; 99284; J1170; J2185; J7030; Q9967

== ENCOUNTER 2019-01-13 15:32 | Emergency (ER) | payer MEDICARE, OTHER ==
[~2019-01-13] VITALS: Ht 154.9 cm; Wt 52.6 kg
[2019-01-13 15:37] VITALS: BP 126/63
[2019-01-13] MEDS ORDERED: IBUPROFEN 200 MG TABLET ONE (16:11)
--- NOTE | 2019-01-13 16:15 | NUR ---
skin tear right foream. caught it on a window
[2019-01-13] MEDS ORDERED: IBUPROFEN 200 MG TABLET PO ONE (16:30)
== END 2019-01-13 17:07 | disposition home or self-care (01) ==
LOC: ED 16:47
DX: S51.801A Unspecified open wound of right forearm, initial encounter (principal); Z88.5 Allergy status to narcotic agent; Z88.1 Allergy status to other antibiotic agents; X58.XXXA Exposure to other specified factors, initial encounter; Y93.89 Activity, other specified; Y92.009 Unspecified place in unspecified non-institutional (private) residence as the place of occurrence of the external cause; Y99.8 Other external cause status
CPT/HCPCS: 99283

== ENCOUNTER 2019-05-12 10:42 | Inpatient (IN) | payer OTHER, MEDICARE ==
[~2019-05-12] VITALS: Ht 154.9 cm; Wt 54.9 kg
--- NOTE | 2019-05-12 11:15 | NUR ---
PT ARRIVED TO ROOM 18 AMBULATORY. PT VERY TEARFUL AND DIFFICULT TO RE-DIRECT. FAMILY AT BEDSIDE. PT IS AAO X 4, VSS OTHER THAN TACHY HR (110S). PT DRESSED IN GOWN AND ATTACHED TO MONITOR. MD AT BEDSIDE FOR EXAM. FAMILY AT BEDSIDE. PT C/O ABDOMINAL PAIN X 5 WEEKS, TODAY IT GOT WORSE. PT STATES HX BMULTIPLE ABDOMINAL SURGERIES. PT STATES "I THINK I HAVE AN INFECTION AGAIN LIKE WHEN I WAS SEPTIC." PT RESTING IN [facility], STATES PAIN 10/10 AND AWAITING MD ORDERS. CALL LIGHT AND BELONGINGS WITHIN REACH.
--- NOTE | 2019-05-12 11:27 | NUR ---
PT EDUCATED ON NEED FOR UA, PT STATES "I DON'T HAVE TO PEE RIGHT NOW." EDUCATED ON NECESSITY.
[2019-05-12 11:28] LABS: BASOPHILS # (AUTO) 0.06 x10^3/uL (0-0.1); BASOPHILS % (AUTO) 1 % (0-1); EOSINOPHILS # (AUTO) 0.13 x10^3/uL (0-0.4); EOSINOPHILS % (AUTO) 2 % (1-7); LYMPHOCYTES # (AUTO) 3.53 x10^3/uL (1-3.4); LYMPHOCYTES % (AUTO) 51 % (22-44); MD NO; MEAN CORPUSCULAR HEMOGLOBIN 35.8 pg (27.0-34.8); MEAN CORPUSCULAR VOLUME 105.4 fL (80-100); MEAN PLATELET VOLUME 6.4 fL (7.4-10.4); MONOCYTES # (AUTO) 0.45 x10^3/uL (0.2-0.8); MONOCYTES % (AUTO) 7 % (2-9); NEUTROPHILS # (AUTO) 2.75 x10^3/uL (1.8-6.8); NEUTROPHILS % (AUTO) 40 % (42-75); PLATELET COUNT 267 x10^3/uL (130-400); RED BLOOD COUNT 4.08 x10^6/uL (3.82-5.3); RED CELL DISTRIBUTION WIDTH 13.4 % (9.6-15.2)
[2019-05-12] MEDS ORDERED: ONDANSETRON 2MG/ML, 2ML ONE (11:28)
[2019-05-12] MEDS ORDERED: HYDROmorphone 2 MG/ML, 1ML ONE ×2 (11:29→13:42)
[2019-05-12] MEDS ORDERED: ONDANSETRON 2MG/ML, 2ML IVPush ONE (11:30)
[2019-05-12] MEDS ORDERED: SODIUM CHLORIDE FLUSH 10ML SYR IVF ONE (11:30)
[2019-05-12] MEDS: HYDROmorphone 2 MG/ML, 1ML IVPush PRN ×5 (11:32→21:20)
--- NOTE | 2019-05-12 11:34 | NUR ---
PT MEDICATED PER MD ORDER. FAMILY AT BEDSIDE, CALL LIGHT WITHIN REACH.
[2019-05-12 11:36] LABS: INTERNATIONAL NORMALIZED RATIO 0.89 (0.93-1.1); PROTHROMBIN TIME 9.4 Seconds (9.6-11.5)
[2019-05-12 11:38] LABS: ALANINE AMINOTRANSFERASE 105 U/L (12-78); ALBUMIN 3.8 g/dL (3.4-5.0); ANION GAP 15 mmol/L (5-15); CHLORIDE 106 mmol/L (98-107); CREATININE 0.62 mg/dL (0.55-1.02)
[2019-05-12 11:48] LABS: ALKALINE PHOSPHATASE 161 U/L (45-117); BILIRUBIN,TOTAL 0.9 mg/dL (0.2-1.0); TOTAL PROTEIN 6.9 g/dL (6.4-8.2)
--- NOTE | 2019-05-12 12:05 | NUR ---
PT TO CT.
--- NOTE | 2019-05-12 12:14 | NUR ---
PT BACK FROM CT.
[2019-05-12] MEDS ORDERED: OMNIPAQUE 350 MG/ML, 100ML BOTTLE ONE (12:17)
--- NOTE | 2019-05-12 12:17 | NUR ---
PT AMBULATORY TO RESTROOM WITH STEADY GAIT FOR UA, WITH PT FOR ASSISTANCE.
--- NOTE | 2019-05-12 12:34 | NUR ---
UA PROVIDED, SENT TO LAB AND COLLECTED IN EMR.
--- NOTE | 2019-05-12 12:53 | NUR ---
LAB CALLED REGARDING UA, [employer] TREATING UNIT OPERATOR STATED IT IS IN PROCESS NOW.
[2019-05-12 13:03] LABS: MICROSCOPIC NOT IND
[2019-05-12 13:15] LABS: CULTURE INDICATED? NO
--- NOTE | 2019-05-12 13:21 | NUR ---
ALL RESULTS BACK AT THIS TIME, CHART UP FOR RECHECK.
--- NOTE | 2019-05-12 13:47 | NUR ---
PT MEDICATED PER MD ORDER, MD AT BEDSIDE FOR EXAM AND UPDATE TO PLAN OF CARE.
--- NOTE | 2019-05-12 13:53 | NUR ---
PT SPOKE WITH THIS RN REGARDING PT'S ETOH USE. PT STATES "I DRINK A HALF A PINT TO A PINT OF VODKA ALMOST EVERY DAY." PT VERY TEARFUL, EMOTIONAL SUPPORT PROVIDED.
--- NOTE | 2019-05-12 14:42 | NUR ---
REPORT GIVEN TO TRACEE SILVERMAN. PT TO TRANSFER WITH CHART AND BELONGINGS TO ROOM 460.
[2019-05-12 15:12] VITALS: BP 126/97
[2019-05-12] MEDS: SODIUM CHLORIDE 0.9% 1,000 ML IV SCH ×4 (15:45→23:31)
[2019-05-12] MEDS ORDERED: TRAM50TA2 PO (15:56)
[2019-05-12] MEDS ORDERED: ASPI1TAB31 PO (15:58)
[2019-05-12] MEDS ORDERED: LORA1TAB PO (15:58)
[2019-05-12] MEDS ORDERED: LABETALOL 5MG/ML, 20ML IVPush PRN (16:00)
[2019-05-12] MEDS ORDERED: PROMETHAZINE 25 MG/ML, 1ML IM PRN (16:00)
[2019-05-12] MEDS ORDERED: hydrALAzine 20 MG/ML, 1ML IVPush PRN (16:00)
[2019-05-12] MEDS: NICOTINE 7 MG/24 HR PATCH.TD24 TD SCH (17:14)
[2019-05-12 19:18] VITALS: BP 124/75
[2019-05-12] MEDS: ONDANSETRON 2MG/ML, 2ML IVPush PRN (20:06)
[2019-05-13] MEDS: HYDROmorphone 2 MG/ML, 1ML IVPush PRN ×7 (00:31→22:04)
[2019-05-13 00:53] VITALS: BP 135/89
[2019-05-13 06:11] LABS: MEAN CORPUSCULAR HEMOGLOBIN 35.4 pg (27.0-34.8); MEAN CORPUSCULAR VOLUME 107.1 fL (80-100); MEAN PLATELET VOLUME 6.8 fL (7.4-10.4); PLATELET COUNT 189 x10^3/uL (130-400); RED BLOOD COUNT 3.51 x10^6/uL (3.82-5.3); RED CELL DISTRIBUTION WIDTH 13.6 % (9.6-15.2)
[2019-05-13] MEDS: SODIUM CHLORIDE 0.9% 1,000 ML IV SCH (06:11)
[2019-05-13 06:17] LABS: ALBUMIN 3.4 g/dL (3.4-5.0); ANION GAP 15 mmol/L (5-15); CALCIUM 7.8 mg/dL (8.5-10.1); CHLORIDE 104 mmol/L (98-107)
[2019-05-13 06:21] LABS: ALANINE AMINOTRANSFERASE 101 U/L (12-78); ALKALINE PHOSPHATASE 128 U/L (45-117); BILIRUBIN,TOTAL 1.2 mg/dL (0.2-1.0); CREATININE 0.49 mg/dL (0.55-1.02)
[2019-05-13 06:57] VITALS: BP 151/92
[2019-05-13 07:03] LABS: MD MORPH REVIEW ONLY
[2019-05-13 07:04] LABS: ANISOCYTOSIS 1+
[2019-05-13 07:05] LABS: <PLATELET ESTIMATE> ADEQUATE; <PLT MORPHOLOGY> NORMAL PLT MORPH
[2019-05-13 07:06] LABS: BASOPHILS # (AUTO) 0.02 x10^3/uL (0-0.1); BASOPHILS % (AUTO) 1 % (0-1); EOSINOPHILS # (AUTO) 0.01 x10^3/uL (0-0.4); EOSINOPHILS % (AUTO) 0 % (1-7); LYMPHOCYTES # (AUTO) 1.31 x10^3/uL (1-3.4); LYMPHOCYTES % (AUTO) 29 % (22-44); MONOCYTES # (AUTO) 0.34 x10^3/uL (0.2-0.8); MONOCYTES % (AUTO) 8 % (2-9); NEUTROPHILS # (AUTO) 2.87 x10^3/uL (1.8-6.8); NEUTROPHILS % (AUTO) 63 % (42-75)
[2019-05-13] MEDS ORDERED: DEXTROSE 50%, 50ML SYRINGE IVPush PRN (08:00)
[2019-05-13] MEDS ORDERED: CALCIUM GLUCONATE 4.6 MEQ in SODIUM CHLORIDE 0.9% 50 ML IV ONE (08:00)
[2019-05-13] MEDS ORDERED: GLUCAGON 1 MG IM PRN (08:00)
[2019-05-13] MEDS ORDERED: DEXTROSE 4 GM TAB.CHEW PO PRN (08:00)
[2019-05-13] MEDS: MULTIVITAMIN 1 TABLET PO SCH (08:18)
[2019-05-13] MEDS: THIAMINE 100MG TABLET PO SCH (08:18)
[2019-05-13] MEDS: FOLIC ACID 1 MG TABLET PO SCH (08:18)
[2019-05-13] MEDS: SODIUM CHLORIDE FLUSH 10ML SYR IVF SCH ×2 (08:38→22:04)
[2019-05-13] MEDS: ONDANSETRON 2MG/ML, 2ML IVPush PRN (11:19)
[2019-05-13 12:48] VITALS: BP 145/92
[2019-05-13] MEDS: D5%-0.45% NACL+KCL 10MEQ 1,000 ML IV SCH (12:52)
[2019-05-13] MEDS: NICOTINE 7 MG/24 HR PATCH.TD24 TD SCH (18:00)
[2019-05-13 20:29] VITALS: BP 136/92
[2019-05-13] MEDS ORDERED: DIPHENHYDRAMINE 50 MG/ML, 1ML IVPush PRN (21:00)
[2019-05-14] MEDS: D5%-0.45% NACL+KCL 10MEQ 1,000 ML IV SCH ×2 (00:41→16:20)
[2019-05-14 02:51] VITALS: BP 144/106
[2019-05-14 05:08] LABS: ALBUMIN 3.5 g/dL (3.4-5.0); ANION GAP 6 mmol/L (5-15); CALCIUM 8.3 mg/dL (8.5-10.1); CHLORIDE 104 mmol/L (98-107)
[2019-05-14 05:13] LABS: ALANINE AMINOTRANSFERASE 76 U/L (12-78); ALKALINE PHOSPHATASE 126 U/L (45-117); BILIRUBIN,TOTAL 1.2 mg/dL (0.2-1.0); CREATININE 0.54 mg/dL (0.55-1.02); TOTAL PROTEIN 6.2 g/dL (6.4-8.2)
[2019-05-14 06:50] VITALS: BP 147/88
[2019-05-14] MEDS: MULTIVITAMIN 1 TABLET PO SCH (09:09)
[2019-05-14] MEDS: THIAMINE 100MG TABLET PO SCH (09:09)
[2019-05-14] MEDS: OXYcodone/APAP 5/325MG TABLET PO PRN ×4 (09:09→22:41)
[2019-05-14] MEDS: SODIUM CHLORIDE FLUSH 10ML SYR IVF SCH ×2 (09:09→20:47)
[2019-05-14] MEDS: FOLIC ACID 1 MG TABLET PO SCH (09:09)
[2019-05-14 14:48] VITALS: BP 129/86
[2019-05-14] MEDS: NICOTINE 7 MG/24 HR PATCH.TD24 TD SCH (17:23)
[2019-05-14 20:06] VITALS: BP 115/78
[2019-05-14] MEDS: TRAZODONE 50MG TABLET PO PRN (20:47)
[2019-05-15 01:58] VITALS: BP 110/77
[2019-05-15] MEDS: OXYcodone/APAP 5/325MG TABLET PO PRN ×5 (06:11→21:55)
[2019-05-15 06:16] LABS: ALBUMIN 2.6 g/dL (3.4-5.0); ANION GAP 5 mmol/L (5-15); CALCIUM 8.2 mg/dL (8.5-10.1); CHLORIDE 111 mmol/L (98-107)
[2019-05-15 06:22] LABS: ALANINE AMINOTRANSFERASE 50 U/L (12-78); ALKALINE PHOSPHATASE 101 U/L (45-117); BILIRUBIN,TOTAL 0.8 mg/dL (0.2-1.0)
[2019-05-15 07:33] VITALS: BP 111/55
[2019-05-15] MEDS ORDERED: POTASSIUM CHLORIDE 40 MEQ in SODIUM CHLORIDE 0.9% 500 ML IV ONE (09:00)
[2019-05-15] MEDS: THIAMINE 100MG TABLET PO SCH (09:00)
[2019-05-15] MEDS: MULTIVITAMIN 1 TABLET PO SCH (09:00)
[2019-05-15] MEDS: FOLIC ACID 1 MG TABLET PO SCH (09:00)
[2019-05-15] MEDS: D5%-0.45% NACL+KCL 10MEQ 1,000 ML IV SCH (10:16)
[2019-05-15] MEDS: SODIUM CHLORIDE FLUSH 10ML SYR IVF SCH ×2 (10:21→21:56)
[2019-05-15] MEDS ORDERED: FENTANYL PF 250 MCG/5ML ONE (10:41)
[2019-05-15] MEDS ORDERED: MIDAZOLAM 1 MG/ML, 2ML ONE (10:41)
[2019-05-15] MEDS ORDERED: LABETALOL 5 MG/ML SYRINGE IV PRN (11:00)
[2019-05-15] MEDS ORDERED: ONDANSETRON 2MG/ML, 2ML IV PRN (11:00)
[2019-05-15] MEDS ORDERED: HYDROmorphone 2 MG/ML, 1ML IVPush PRN (11:00)
[2019-05-15] MEDS ORDERED: hydrALAzine 20 MG/ML, 1ML IV PRN (11:00)
[2019-05-15] MEDS ORDERED: FENTANYL PF 100 MCG/2ML IV PRN (11:00)
[2019-05-15] MEDS ORDERED: PROMETHAZINE 25 MG/ML, 1ML IV PRN (11:00)
[2019-05-15] MEDS ORDERED: SUCCINYLCHOLINE 20 MG/ML, 10ML ONE (11:30)
[2019-05-15] MEDS ORDERED: PROPOFOL 10 MG/ML, 20ML ONE (11:30)
[2019-05-15] MEDS ORDERED: DEXAMETHASONE 4 MG/ML, 1ML ONE (11:30)
[2019-05-15] MEDS ORDERED: ONDANSETRON 2MG/ML, 2ML ONE ×2 (11:30→13:12)
[2019-05-15] MEDS ORDERED: ROCURONIUM 10 MG/ML,10ML ONE (11:45)
[2019-05-15] MEDS ORDERED: EPHEDRINE 50 MG/ML, 1ML ONE (11:56)
[2019-05-15] MEDS ORDERED: METOPROLOL 1 MG/ML, 5ML ONE (12:34)
[2019-05-15] MEDS ORDERED: PROMETHAZINE 25 MG/ML, 1ML ONE (12:53)
[2019-05-15] MEDS ORDERED: OMNIPAQUE 350 MG/ML, 50 ML BOTTLE ONE (15:32)
[2019-05-15 17:30] VITALS: BP 124/84
[2019-05-15] MEDS: NICOTINE 7 MG/24 HR PATCH.TD24 TD SCH (17:43)
[2019-05-15] MEDS ORDERED: KETOROLAC 30 MG/1 ML IVPush PRN ×5 (18:00→19:00)
[2019-05-15 19:32] VITALS: BP 104/68
[2019-05-15] MEDS: TRAZODONE 50MG TABLET PO PRN (23:02)
[2019-05-16] MEDS ORDERED: KETOROLAC 30 MG/1 ML IVPush PRN
[2019-05-16 00:56] VITALS: BP 100/68
[2019-05-16] MEDS: OXYcodone/APAP 5/325MG TABLET PO PRN ×3 (02:29→11:46)
[2019-05-16] MEDS: D5%-0.45% NACL+KCL 10MEQ 1,000 ML IV SCH (04:46)
[2019-05-16 05:52] LABS: ALBUMIN 2.7 g/dL (3.4-5.0); ANION GAP 6 mmol/L (5-15); CALCIUM 8.5 mg/dL (8.5-10.1); CHLORIDE 111 mmol/L (98-107)
[2019-05-16 05:58] LABS: ALANINE AMINOTRANSFERASE 285 U/L (12-78); ALKALINE PHOSPHATASE 191 U/L (45-117); BILIRUBIN,TOTAL 1.9 mg/dL (0.2-1.0); CREATININE 0.61 mg/dL (0.55-1.02); TOTAL PROTEIN 5.1 g/dL (6.4-8.2)
[2019-05-16] MEDS ORDERED: OMEPRAZOLE 20 MG CAPSULE.DR PO SCH (06:00)
[2019-05-16] MEDS: THIAMINE 100MG TABLET PO SCH (07:29)
[2019-05-16] MEDS: MULTIVITAMIN 1 TABLET PO SCH (07:29)
[2019-05-16] MEDS: FOLIC ACID 1 MG TABLET PO SCH (07:29)
[2019-05-16] MEDS: SODIUM CHLORIDE FLUSH 10ML SYR IVF SCH (07:31)
[2019-05-16] MEDS ORDERED: LACTATED RINGERS 1,000 ML IV SCH (08:00)
[2019-05-16 09:47] VITALS: BP 126/84
[2019-05-16 12:33] VITALS: BP 127/86
[2019-05-16] MEDS ORDERED: MAGNESIUM HYDROXIDE 8%, 30ML UDC PO PRN (13:00)
[2019-05-16] MEDS ORDERED: FOLI-17 PO (13:32)
[2019-05-16] MEDS ORDERED: THIA100T67 PO (13:32)
[2019-05-16] MEDS ORDERED: DOCU-131 PO (13:32)
[2019-05-16] MEDS ORDERED: MULT1TAB60 PO (13:32)
[2019-05-16] MEDS ORDERED: OMEP-110 PO (13:32)
[2019-05-16] MEDS ORDERED: DOCUSATE 100 MG CAPSULE PO SCH (21:00)
== END 2019-05-16 16:00 | disposition home or self-care (01) | DRG 432 ==
LOC: ED 13:18 → EDIP 13:51 → 4NOR 15:05
PROVIDERS: ADMIT Hospitalist; ATTEND Hospitalist
PROC: BF101ZZ Fluoroscopy of Bile Ducts using Low Osmolar Contrast (ICD-10-PCS; 2019-05-15)
PROC: 0FC98ZZ Extirpation of Matter from Common Bile Duct, Via Natural or Artificial Opening Endoscopic (ICD-10-PCS; principal; 2019-05-15 12:30)
DX: K70.10 Alcoholic hepatitis without ascites (principal); K83.1 Obstruction of bile duct; K85.90 Acute pancreatitis without necrosis or infection, unspecified; E87.2 Acidosis; M79.7 Fibromyalgia; E16.2 Hypoglycemia, unspecified; F17.210 Nicotine dependence, cigarettes, uncomplicated; E83.51 Hypocalcemia; G47.00 Insomnia, unspecified; K59.00 Constipation, unspecified; I48.91 Unspecified atrial fibrillation; K76.0 Fatty (change of) liver, not elsewhere classified; F10.220 Alcohol dependence with intoxication, uncomplicated; Y90.9 Presence of alcohol in blood, level not specified; G89.29 Other chronic pain; Z90.49 Acquired absence of other specified parts of digestive tract; Z90.710 Acquired absence of both cervix and uterus; Z87.440 Personal history of urinary (tract) infections; Z88.6 Allergy status to analgesic agent; Z88.8 Allergy status to other drugs, medicaments and biological substances
CPT/HCPCS: 36415; 74177; 74181; 74250; 74328; 76700; 76705; 80053; 80074; 80307; 81003; 82962; 83605; 83690; 85025; 85610; 85730; 93005; 96374; 96375; 96376; 99285; G0378; J0610; J1100; J1170; J1885; J2250; J2405; J2550; J2704; J3010; J3480; Q9967; C1769; J0330; J1200; J7030; J7040; J7120

== ENCOUNTER 2019-09-11 12:20 | Inpatient (IN) | payer OTHER ==
[~2019-09-11] VITALS: Ht 154.9 cm; Wt 60.5 kg
[~2019-09-11 12:20] MED LIST changes: +ASPI1TAB31 PO; +DOCU-131 PO; +FOLI-17 PO; +LORA1TAB PO; +MULT1TAB60 PO; +OMEP-110 PO; +THIA100T67 PO
--- NOTE | 2019-09-11 12:30 | NUR ---
PT WITH C/O LLQ ABD PAIN, STATES IT HAS BEEN OFF AND ON FOR 2 WEEKS, WORSENED OVER THE LAS DAY. PT WITH N/V/D X2 DAYS. PT DENIES CP, SOB. PT TO BP, CONT PULSE OX
[2019-09-11] MEDS ORDERED: FENTANYL PF 100 MCG/2ML IVPush ONE (13:00)
[2019-09-11] MEDS ORDERED: LORazepam 2 MG/ML, 1ML IVPush ONE (13:00)
[2019-09-11] MEDS ORDERED: SODIUM CHLORIDE 0.9% 1,000ML IVBOLUS ONE (13:00)
[2019-09-11] MEDS ORDERED: SODIUM CHLORIDE FLUSH 10ML SYR IVF ONE (13:00)
[2019-09-11] MEDS ORDERED: ONDANSETRON 2MG/ML, 2ML IVPush ONE (13:00)
[2019-09-11] MEDS ORDERED: FENTANYL PF 100 MCG/2ML ONE (13:04)
[2019-09-11] MEDS ORDERED: LORazepam 2 MG/ML, 1ML ONE (13:04)
[2019-09-11] MEDS ORDERED: ONDANSETRON 2MG/ML, 2ML ONE (13:04)
[2019-09-11 13:21] LABS: BASOPHILS # (AUTO) 0.01 x10^3/uL (0-0.1); BASOPHILS % (AUTO) 0 % (0-1); EOSINOPHILS # (AUTO) 0.04 x10^3/uL (0-0.4); EOSINOPHILS % (AUTO) 0 % (1-7); LYMPHOCYTES # (AUTO) 1.09 x10^3/uL (1-3.4); LYMPHOCYTES % (AUTO) 12 % (22-44); MD NO; MEAN CORPUSCULAR HEMOGLOBIN 33.2 pg (27.0-34.8); MEAN CORPUSCULAR HGB CONC 33.5 g/dL (32.4-35.8); MEAN PLATELET VOLUME 6.2 fL (7.4-10.4); MONOCYTES # (AUTO) 0.53 x10^3/uL (0.2-0.8); MONOCYTES % (AUTO) 6 % (2-9); NEUTROPHILS # (AUTO) 7.32 x10^3/uL (1.8-6.8); NEUTROPHILS % (AUTO) 82 % (42-75); PLATELET COUNT 244 x10^3/uL (130-400); RED BLOOD COUNT 4.57 x10^6/uL (3.82-5.3); RED CELL DISTRIBUTION WIDTH 18.4 % (9.6-15.2)
--- NOTE | 2019-09-11 13:30 | NUR ---
PT AMBULATED TO BR, UA COLLECTED, PIV INITIATED, LABS DRAWN. PT MEDICATED PER MAR AWAITING CT
[2019-09-11 13:31] LABS: ALANINE AMINOTRANSFERASE 37 U/L (12-78); ANION GAP 15 mmol/L (5-15); CALCIUM 8.6 mg/dL (8.5-10.1); CHLORIDE 97 mmol/L (98-107); CREATININE 0.62 mg/dL (0.55-1.02)
[2019-09-11 13:34] LABS: ALKALINE PHOSPHATASE 98 U/L (45-117); BILIRUBIN,TOTAL 1.2 mg/dL (0.2-1.0); TOTAL PROTEIN 7.7 g/dL (6.4-8.2)
[2019-09-11 14:03] LABS: MICROSCOPIC AUTO
[2019-09-11 14:09] LABS: CULTURE INDICATED? YES
[2019-09-11] MEDS ORDERED: CEFTRIAXONE PMX 1GM/50ML 50 ML IV ONE (14:30)
--- NOTE | 2019-09-11 14:33 | NUR ---
PT TO GO TO CT THEN TO RM.
--- NOTE | 2019-09-11 14:39 | NUR ---
REPORT TO RECIEVING RN
--- NOTE | 2019-09-11 15:12 | NUR ---
PT AMBULATED TO BR WITH STEADY GAIT, PT DENIES FURTHER NEEDS AT THIS TIME, STILL WAITING ON CT
[2019-09-11] MEDS ORDERED: OMNIPAQUE 350 MG/ML, 100ML BOTTLE ONE (16:13)
[2019-09-11] MEDS ORDERED: ONDANSETRON 2MG/ML, 2ML IVPush PRN (16:30)
[2019-09-11] MEDS ORDERED: ACETAMINOPHEN 325 MG TABLET PO PRN (16:30)
[2019-09-11] MEDS: SODIUM CHLORIDE 0.9% 1,000 ML IV SCH (16:33)
[2019-09-11] MEDS: HYDROmorphone 2 MG/ML, 1ML IVPush PRN ×3 (16:34→23:51)
[2019-09-11] MEDS: ENOXAPARIN 40 MG/0.4 ML SQ SCH (16:54)
[2019-09-11] MEDS: MEROPENEM 1 GM in SODIUM CHLORIDE 0.9% 100 ML IV SCH (17:22)
[2019-09-11 19:14] VITALS: BP 128/94
[2019-09-12] MEDS: MEROPENEM 1 GM in SODIUM CHLORIDE 0.9% 100 ML IV SCH ×3 (00:42→16:10)
[2019-09-12 01:34] VITALS: BP 113/81
[2019-09-12] MEDS: HYDROmorphone 2 MG/ML, 1ML IVPush PRN ×7 (02:55→23:10)
[2019-09-12] MEDS: SODIUM CHLORIDE 0.9% 1,000 ML IV SCH ×2 (03:02→12:46)
[2019-09-12 05:40] LABS: BASOPHILS # (AUTO) 0.02 x10^3/uL (0-0.1); BASOPHILS % (AUTO) 1 % (0-1); EOSINOPHILS # (AUTO) 0.19 x10^3/uL (0-0.4); EOSINOPHILS % (AUTO) 5 % (1-7); LYMPHOCYTES # (AUTO) 0.98 x10^3/uL (1-3.4); LYMPHOCYTES % (AUTO) 26 % (22-44); MD NO; MEAN CORPUSCULAR HEMOGLOBIN 33.5 pg (27.0-34.8); MEAN CORPUSCULAR HGB CONC 33.6 g/dL (32.4-35.8); MEAN CORPUSCULAR VOLUME 99.7 fL (80-100); MEAN PLATELET VOLUME 6.5 fL (7.4-10.4); MONOCYTES # (AUTO) 0.27 x10^3/uL (0.2-0.8); MONOCYTES % (AUTO) 7 % (2-9); NEUTROPHILS # (AUTO) 2.32 x10^3/uL (1.8-6.8); NEUTROPHILS % (AUTO) 61 % (42-75); PLATELET COUNT 157 x10^3/uL (130-400); RED BLOOD COUNT 3.94 x10^6/uL (3.82-5.3); RED CELL DISTRIBUTION WIDTH 17.4 % (9.6-15.2)
[2019-09-12 05:50] LABS: ANION GAP 7 mmol/L (5-15); CALCIUM 7.4 mg/dL (8.5-10.1); CHLORIDE 104 mmol/L (98-107)
[2019-09-12 05:53] LABS: ALANINE AMINOTRANSFERASE 26 U/L (12-78); ALKALINE PHOSPHATASE 71 U/L (45-117); BILIRUBIN,TOTAL 1.1 mg/dL (0.2-1.0); CREATININE 0.57 mg/dL (0.55-1.02)
[2019-09-12 06:59] VITALS: BP 124/77
[2019-09-12 14:00] VITALS: BP 131/82
[2019-09-12] MEDS ORDERED: CEFTRIAXONE PMX 1GM/50ML 50 ML IV SCH (14:30)
[2019-09-12] MEDS ORDERED: FLU VAC QS 19-20(4YR UP)CEL/PF 0.5 ML IM-VACC ONE (16:00)
[2019-09-12] MEDS: ENOXAPARIN 40 MG/0.4 ML SQ SCH (17:00)
[2019-09-12] MEDS: PANTOPRAZOLE 40 MG IV IVPush SCH (17:37)
[2019-09-12] MEDS ORDERED: POTASSIUM PHOSPHATE 44 MEQ in SODIUM CHLORIDE 0.9% 500 ML IV ONE (19:30)
[2019-09-12] MEDS ORDERED: MAGNESIUM SULFATE PMX 2GM/50ML 50 ML IV ONE (19:30)
[2019-09-12 20:23] VITALS: BP 124/90
[2019-09-12] MEDS ORDERED: POTASSIUM CHLORIDE 40 MEQ in SODIUM CHLORIDE 0.9% 500 ML IV ONE (23:00)
[2019-09-12] MEDS: DIPHENHYDRAMINE 25 MG CAPSULE PO PRN (23:10)
[2019-09-13] MEDS: MEROPENEM 1 GM in SODIUM CHLORIDE 0.9% 100 ML IV SCH ×3 (01:01→15:53)
[2019-09-13] MEDS: DIPHENHYDRAMINE 25 MG CAPSULE PO PRN ×2 (01:52→15:16)
[2019-09-13 02:23] VITALS: BP 101/63
[2019-09-13] MEDS: HYDROmorphone 2 MG/ML, 1ML IVPush PRN ×6 (03:31→21:46)
[2019-09-13] MEDS: PANTOPRAZOLE 40 MG IV IVPush SCH ×2 (05:28→15:53)
[2019-09-13 05:33] LABS: BASOPHILS % (AUTO) 0 % (0-1); EOSINOPHILS # (AUTO) 0.04 x10^3/uL (0-0.4); EOSINOPHILS % (AUTO) 1 % (1-7); LYMPHOCYTES # (AUTO) 0.24 x10^3/uL (1-3.4); LYMPHOCYTES % (AUTO) 4 % (22-44); MD NO; MEAN CORPUSCULAR HEMOGLOBIN 34.1 pg (27.0-34.8); MEAN CORPUSCULAR HGB CONC 33.6 g/dL (32.4-35.8); MEAN CORPUSCULAR VOLUME 101.6 fL (80-100); MEAN PLATELET VOLUME 6.4 fL (7.4-10.4); MONOCYTES # (AUTO) 0.22 x10^3/uL (0.2-0.8); MONOCYTES % (AUTO) 4 % (2-9); NEUTROPHILS # (AUTO) 5.56 x10^3/uL (1.8-6.8); NEUTROPHILS % (AUTO) 92 % (42-75); PLATELET COUNT 176 x10^3/uL (130-400); RED BLOOD COUNT 3.95 x10^6/uL (3.82-5.3)
[2019-09-13 05:34] LABS: ALANINE AMINOTRANSFERASE 26 U/L (12-78); ALBUMIN 3.2 g/dL (3.4-5.0); ANION GAP 7 mmol/L (5-15); CALCIUM 7.7 mg/dL (8.5-10.1); CHLORIDE 103 mmol/L (98-107)
[2019-09-13 05:36] LABS: ALKALINE PHOSPHATASE 106 U/L (45-117); BILIRUBIN,TOTAL 0.7 mg/dL (0.2-1.0); CREATININE 0.66 mg/dL (0.55-1.02); TOTAL PROTEIN 6.4 g/dL (6.4-8.2)
[2019-09-13 07:13] VITALS: BP 115/68
[2019-09-13] MEDS: SODIUM CHLORIDE 0.9% 1,000 ML IV SCH (07:59)
[2019-09-13] MEDS ORDERED: POTASSIUM CHLORIDE 40 MEQ in SODIUM CHLORIDE 0.9% 500 ML IV ONE (08:00)
[2019-09-13] MEDS: DOCUSATE 100 MG CAPSULE PO PRN ×2 (09:51→21:45)
[2019-09-13] MEDS: LORazepam 0.5MG TABLET PO PRN (12:52)
[2019-09-13 13:30] VITALS: BP 118/76
[2019-09-13] MEDS: POLYETHYLENE GLYCOL 17 GM PACKET PO PRN (15:52)
[2019-09-13] MEDS: ENOXAPARIN 40 MG/0.4 ML SQ SCH (15:53)
[2019-09-13 19:04] VITALS: BP 107/75
[2019-09-13] MEDS: BISACODYL 10 MG SUPP PR PRN (22:08)
[2019-09-14] VITALS (7 sets, daily range): BP systolic 111–141; BP diastolic 65–91
[2019-09-14] MEDS: DIPHENHYDRAMINE 25 MG CAPSULE PO PRN ×2 (00:14→23:58)
[2019-09-14] MEDS: SODIUM CHLORIDE 0.9% 1,000 ML IV SCH ×3 (00:15→20:11)
[2019-09-14] MEDS: MEROPENEM 1 GM in SODIUM CHLORIDE 0.9% 100 ML IV SCH ×3 (00:15→16:49)
[2019-09-14] MEDS: HYDROmorphone 2 MG/ML, 1ML IVPush PRN ×5 (01:41→20:09)
[2019-09-14] MEDS: PANTOPRAZOLE 40 MG IV IVPush SCH ×2 (04:47→16:49)
[2019-09-14 04:57] LABS: CHLORIDE 112 mmol/L (98-107)
[2019-09-14 05:04] LABS: ALANINE AMINOTRANSFERASE 25 U/L (12-78); ALBUMIN 2.9 g/dL (3.4-5.0); ALKALINE PHOSPHATASE 84 U/L (45-117); ANION GAP 5 mmol/L (5-15); BILIRUBIN,TOTAL 0.3 mg/dL (0.2-1.0); CALCIUM 7.4 mg/dL (8.5-10.1); CREATININE 0.61 mg/dL (0.55-1.02); TOTAL PROTEIN 5.7 g/dL (6.4-8.2)
[2019-09-14 05:09] LABS: MEAN CORPUSCULAR HEMOGLOBIN 33.8 pg (27.0-34.8); MEAN CORPUSCULAR HGB CONC 33.5 g/dL (32.4-35.8); MEAN PLATELET VOLUME 6.5 fL (7.4-10.4); PLATELET COUNT 155 x10^3/uL (130-400); RED BLOOD COUNT 3.51 x10^6/uL (3.82-5.3); RED CELL DISTRIBUTION WIDTH 16.8 % (9.6-15.2)
[2019-09-14 05:55] LABS: BASOPHILS # (AUTO) 0.01 x10^3/uL (0-0.1); BASOPHILS % (AUTO) 1 % (0-1); EOSINOPHILS # (AUTO) 0.11 x10^3/uL (0-0.4); EOSINOPHILS % (AUTO) 4 % (1-7); LYMPHOCYTES # (AUTO) 0.83 x10^3/uL (1-3.4); LYMPHOCYTES % (AUTO) 30 % (22-44); MD SCAN; MONOCYTES % (AUTO) 7 % (2-9); NEUTROPHILS # (AUTO) 1.58 x10^3/uL (1.8-6.8); NEUTROPHILS % (AUTO) 58 % (42-75)
[2019-09-14] MEDS: DOCUSATE 100 MG CAPSULE PO PRN ×2 (10:38→20:11)
[2019-09-14] MEDS: LORazepam 0.5MG TABLET PO PRN (10:38)
[2019-09-14] MEDS: POLYETHYLENE GLYCOL 17 GM PACKET PO PRN (10:39)
[2019-09-14] MEDS: ENOXAPARIN 40 MG/0.4 ML SQ SCH (16:50)
[2019-09-14] MEDS ORDERED: MEROPENEM 1 GM in SODIUM CHLORIDE 0.9% 100 ML IV SCH (17:14)
[2019-09-14] MEDS: BISACODYL 10 MG SUPP PR PRN (20:12)
[2019-09-15 00:47] VITALS: BP 139/89
[2019-09-15] MEDS: HYDROmorphone 2 MG/ML, 1ML IVPush PRN ×3 (03:18→06:48)
[2019-09-15] MEDS: PANTOPRAZOLE 40 MG IV IVPush SCH (04:32)
[2019-09-15] MEDS: SODIUM CHLORIDE 0.9% 1,000 ML IV SCH (04:45)
[2019-09-15 04:52] LABS: BASOPHILS # (AUTO) 0.01 x10^3/uL (0-0.1); BASOPHILS % (AUTO) 0 % (0-1); EOSINOPHILS # (AUTO) 0.14 x10^3/uL (0-0.4); EOSINOPHILS % (AUTO) 4 % (1-7); LYMPHOCYTES # (AUTO) 1.14 x10^3/uL (1-3.4); LYMPHOCYTES % (AUTO) 33 % (22-44); MD NO; MEAN CORPUSCULAR HEMOGLOBIN 33.8 pg (27.0-34.8); MEAN CORPUSCULAR HGB CONC 33.2 g/dL (32.4-35.8); MEAN CORPUSCULAR VOLUME 102.1 fL (80-100); MEAN PLATELET VOLUME 6.4 fL (7.4-10.4); MONOCYTES # (AUTO) 0.36 x10^3/uL (0.2-0.8); MONOCYTES % (AUTO) 10 % (2-9); NEUTROPHILS # (AUTO) 1.83 x10^3/uL (1.8-6.8); NEUTROPHILS % (AUTO) 53 % (42-75); PLATELET COUNT 204 x10^3/uL (130-400); RED BLOOD COUNT 3.53 x10^6/uL (3.82-5.3); RED CELL DISTRIBUTION WIDTH 16.7 % (9.6-15.2)
[2019-09-15 05:05] LABS: ALANINE AMINOTRANSFERASE 26 U/L (12-78); ALBUMIN 2.8 g/dL (3.4-5.0); ANION GAP 3 mmol/L (5-15); CALCIUM 8.3 mg/dL (8.5-10.1); CHLORIDE 107 mmol/L (98-107); CREATININE 0.65 mg/dL (0.55-1.02)
[2019-09-15 05:07] LABS: ALKALINE PHOSPHATASE 87 U/L (45-117); BILIRUBIN,TOTAL 0.3 mg/dL (0.2-1.0); TOTAL PROTEIN 5.8 g/dL (6.4-8.2)
[2019-09-15 08:45] VITALS: BP 146/105
[2019-09-15] MEDS ORDERED: TRAM50TA2 PO (14:52)
[2019-09-15 15:00] VITALS: BP 145/91
== END 2019-09-15 15:54 | disposition home or self-care (01) | DRG 689 ==
LOC: ED 14:10 → EDIP 14:11 → ED 14:20 → SUATTDRO 14:29 → 3N 15:50
PROVIDERS: ADMIT Internal Medicine; ATTEND Internal Medicine
DX: N39.0 Urinary tract infection, site not specified (principal); K85.91 Acute pancreatitis with uninfected necrosis, unspecified; E87.1 Hypo-osmolality and hyponatremia; I48.92 Unspecified atrial flutter; Z16.12 Extended spectrum beta lactamase (ESBL) resistance; L02.211 Cutaneous abscess of abdominal wall; B96.20 Unspecified Escherichia coli [E. coli] as the cause of diseases classified elsewhere; B96.89 Other specified bacterial agents as the cause of diseases classified elsewhere; Z88.8 Allergy status to other drugs, medicaments and biological substances; D75.89 Other specified diseases of blood and blood-forming organs; G89.29 Other chronic pain; K59.03 Drug induced constipation; K83.8 Other specified diseases of biliary tract; N20.0 Calculus of kidney; T40.605A Adverse effect of unspecified narcotics, initial encounter; Y92.89 Other specified places as the place of occurrence of the external cause; Z83.3 Family history of diabetes mellitus; Z86.19 Personal history of other infectious and parasitic diseases; Z90.710 Acquired absence of both cervix and uterus
CPT/HCPCS: 36415; 74177; 80053; 81001; 82330; 83690; 83735; 84100; 85025; 87040; 87077; 87086; 87184; 87186; 90674; 96374; 96375; 99285; G0378; J1170; J1650; J2185; J2405; J3010; J3480; Q9967; C9113; J2060; J3475; J7030; J7040; Q0163

== ENCOUNTER 2019-12-01 13:14 | Inpatient (IN) | payer OTHER ==
[~2019-12-01] VITALS: Ht 157.5 cm; Wt 53.4 kg
[~2019-12-01 13:14] MED LIST changes: +CLON-364 PO; -CLON0.5T11 PO
--- NOTE | 2019-12-01 13:50 | NUR ---
childcare provider: Pt ambulatory to ED room 19 from [facility]na at this time
[2019-12-01 13:51] LABS: BASOPHILS # (AUTO) 0.03 x10^3/uL (0-0.1); BASOPHILS % (AUTO) 0 % (0-1); EOSINOPHILS # (AUTO) 0.04 x10^3/uL (0-0.4); EOSINOPHILS % (AUTO) 0 % (1-7); LYMPHOCYTES # (AUTO) 1.51 x10^3/uL (1-3.4); LYMPHOCYTES % (AUTO) 17 % (22-44); MD NO; MEAN CORPUSCULAR HEMOGLOBIN 33.7 pg (27.0-34.8); MEAN CORPUSCULAR HGB CONC 34.1 g/dL (32.4-35.8); MEAN CORPUSCULAR VOLUME 98.8 fL (80-100); MEAN PLATELET VOLUME 6.4 fL (7.4-10.4); MONOCYTES # (AUTO) 0.28 x10^3/uL (0.2-0.8); MONOCYTES % (AUTO) 3 % (2-9); NEUTROPHILS # (AUTO) 7.14 x10^3/uL (1.8-6.8); NEUTROPHILS % (AUTO) 79 % (42-75); PLATELET COUNT 315 x10^3/uL (130-400); RED BLOOD COUNT 4.35 x10^6/uL (3.82-5.3); RED CELL DISTRIBUTION WIDTH 13.5 % (9.6-15.2)
[2019-12-01 14:02] LABS: ALANINE AMINOTRANSFERASE 51 U/L (12-78); ANION GAP 19 mmol/L (5-15); CALCIUM 8.6 mg/dL (8.5-10.1); CHLORIDE 102 mmol/L (98-107); CREATININE 0.79 mg/dL (0.55-1.02)
[2019-12-01 14:05] LABS: ALKALINE PHOSPHATASE 105 U/L (45-117); TOTAL PROTEIN 7.4 g/dL (6.4-8.2)
--- NOTE | 2019-12-01 14:06 | NUR ---
FIRST CONTACT WITH PT. PT C/O N/V, ABD PAIN X 2 WEEKS; EPIGASTRIC AND RIGHT UPPER ABD PAIN; HX PANCREATITIS, STATES THIS FEELS SIMILAR. PT'S AOX4. RESPS EVEN AND UNLABORED. BP/SPO2 MONITORS IN PLACE. CALL LIGHT WITHIN REACH.
--- NOTE | 2019-12-01 14:07 | NUR ---
PT AMB TO BR WITH STEADY GAIT. UA CUP GIVEN.
--- NOTE | 2019-12-01 14:20 | NUR ---
PT PROVIDED URINE SAMPLE. UA SENT.
[2019-12-01] MEDS ORDERED: ONDANSETRON 2MG/ML, 2ML ONE (14:23)
[2019-12-01] MEDS ORDERED: HYDROmorphone 1 MG/ML, 1ML INJ ONE (14:23)
[2019-12-01] MEDS ORDERED: FAMOTIDINE 20 MG/2 ML ONE (14:23)
[2019-12-01] MEDS ORDERED: FAMOTIDINE 20 MG/2 ML IVPush ONE (14:30)
[2019-12-01] MEDS ORDERED: ONDANSETRON 2MG/ML, 2ML IVPush ONE (14:30)
[2019-12-01] MEDS: D5%-LACTATED RINGERS 1,000 ML IV SCH ×2 (14:30→16:30)
[2019-12-01] MEDS ORDERED: SODIUM CHLORIDE FLUSH 10ML SYR IVF ONE (14:30)
[2019-12-01] MEDS ORDERED: HYDROmorphone 2 MG/ML, 1ML IVPush PRN (14:30)
[2019-12-01 14:31] LABS: MICROSCOPIC INDICATED
--- NOTE | 2019-12-01 14:39 | NUR ---
EKG DONE AT BEDSIDE BY EMT.
--- NOTE | 2019-12-01 14:39 | NUR ---
PIV EST ON R AC. NO COMPLICATIONS. PT TOLERATED WELL. PT MEDICATED PER EMAR.
[2019-12-01 14:43] LABS: ACETONE, SERUM Small (20mg/dL) mg/dL (Negative)
[2019-12-01 14:50] LABS: CULTURE INDICATED? YES
--- NOTE | 2019-12-01 14:59 | NUR ---
MED ORDERED FROM PHARMACY AT THIS TIME.
--- NOTE | 2019-12-01 15:29 | NUR ---
NEW IV STARTED BY CT- 20G LT AC, RT AC IV DC'ED
--- NOTE | 2019-12-01 15:32 | NUR ---
PT IN CT AT THIS TIME.
[2019-12-01] MEDS ORDERED: OMNIPAQUE 350 MG/ML, 100ML BOTTLE ONE (15:36)
--- NOTE | 2019-12-01 15:41 | NUR ---
REPORT GIVEN TO GELACIO SILVERMAN. ALL QUESTIONS ANSWERED.
[2019-12-01] MEDS ORDERED: ONDA4TAB7 PO (15:44)
--- NOTE | 2019-12-01 15:44 | NUR ---
PT BACK TO ROOM FROM CT AT THIS TIME.
[2019-12-01 16:04] VITALS: BP 122/75
[2019-12-01] MEDS: ENOXAPARIN 40 MG/0.4 ML SQ SCH (16:51)
[2019-12-01] MEDS: ONDANSETRON 2MG/ML, 2ML IVPush PRN ×2 (16:53→23:22)
[2019-12-01] MEDS: LACTATED RINGERS 1,000 ML IV SCH (16:55)
[2019-12-01] MEDS ORDERED: hydrALAzine 20 MG/ML, 1ML IVPush PRN (17:00)
[2019-12-01] MEDS ORDERED: KETOROLAC 30 MG/1 ML IM PRN (17:00)
[2019-12-01] MEDS ORDERED: KETOROLAC 30 MG/1 ML IV PRN (17:00)
[2019-12-01 17:06] VITALS: BP 122/68
[2019-12-01] MEDS ORDERED: HYDROmorphone 2 MG/ML, 1ML ONE ×2 (18:07→22:08)
[2019-12-01] MEDS: HYDROmorphone 1 MG/ML, 1ML INJ IV PRN ×2 (18:10→22:15)
[2019-12-01 19:15] VITALS: BP 126/80
[2019-12-01 19:24] VITALS: BP 130/78
[2019-12-02 01:23] VITALS: BP 125/77
[2019-12-02] MEDS ORDERED: HYDROmorphone 2 MG/ML, 1ML ONE ×7 (02:58→23:35)
[2019-12-02] MEDS: HYDROmorphone 1 MG/ML, 1ML INJ IV PRN ×7 (03:01→23:41)
[2019-12-02] MEDS: LACTATED RINGERS 1,000 ML IV SCH ×2 (03:52→14:38)
[2019-12-02] MEDS: ONDANSETRON 2MG/ML, 2ML IVPush PRN ×4 (05:22→23:40)
[2019-12-02 06:40] LABS: BASOPHILS # (AUTO) 0.02 x10^3/uL (0-0.1); BASOPHILS % (AUTO) 0 % (0-1); EOSINOPHILS # (AUTO) 0.01 x10^3/uL (0-0.4); EOSINOPHILS % (AUTO) 0 % (1-7); LYMPHOCYTES # (AUTO) 1.09 x10^3/uL (1-3.4); LYMPHOCYTES % (AUTO) 20 % (22-44); MD NO; MEAN CORPUSCULAR HEMOGLOBIN 33.7 pg (27.0-34.8); MEAN CORPUSCULAR HGB CONC 34.2 g/dL (32.4-35.8); MEAN CORPUSCULAR VOLUME 98.7 fL (80-100); MEAN PLATELET VOLUME 6.5 fL (7.4-10.4); MONOCYTES # (AUTO) 0.44 x10^3/uL (0.2-0.8); MONOCYTES % (AUTO) 8 % (2-9); NEUTROPHILS # (AUTO) 3.93 x10^3/uL (1.8-6.8); NEUTROPHILS % (AUTO) 72 % (42-75); PLATELET COUNT 205 x10^3/uL (130-400); RED BLOOD COUNT 3.72 x10^6/uL (3.82-5.3); RED CELL DISTRIBUTION WIDTH 13.6 % (9.6-15.2)
[2019-12-02 06:49] LABS: ANION GAP 12 mmol/L (5-15); CALCIUM 7.8 mg/dL (8.5-10.1); CHLORIDE 104 mmol/L (98-107); CREATININE 0.59 mg/dL (0.55-1.02)
[2019-12-02 07:47] VITALS: BP 130/81
[2019-12-02] MEDS ORDERED: DIPHENHYDRAMINE 12.5MG/5ML, 10ML UDC PO PRN (10:30)
[2019-12-02 13:48] VITALS: BP 131/74
[2019-12-02] MEDS: ENOXAPARIN 40 MG/0.4 ML SQ SCH (17:37)
[2019-12-02 21:11] VITALS: BP 118/76
[2019-12-03] MEDS: LACTATED RINGERS 1,000 ML IV SCH (00:14)
[2019-12-03 01:03] VITALS: BP 122/78
[2019-12-03] MEDS ORDERED: HYDROmorphone 2 MG/ML, 1ML ONE ×2 (02:44→05:50)
[2019-12-03] MEDS: HYDROmorphone 1 MG/ML, 1ML INJ IV PRN (02:48)
[2019-12-03] MEDS: ONDANSETRON 2MG/ML, 2ML IVPush PRN ×2 (05:40→05:44)
[2019-12-03 06:24] LABS: BASOPHILS # (AUTO) 0.02 x10^3/uL (0-0.1); BASOPHILS % (AUTO) 1 % (0-1); EOSINOPHILS % (AUTO) 3 % (1-7); LYMPHOCYTES # (AUTO) 1.22 x10^3/uL (1-3.4); LYMPHOCYTES % (AUTO) 36 % (22-44); MD NO; MEAN CORPUSCULAR HEMOGLOBIN 33.9 pg (27.0-34.8); MEAN CORPUSCULAR HGB CONC 34.4 g/dL (32.4-35.8); MEAN CORPUSCULAR VOLUME 98.5 fL (80-100); MEAN PLATELET VOLUME 6.6 fL (7.4-10.4); MONOCYTES % (AUTO) 6 % (2-9); NEUTROPHILS # (AUTO) 1.89 x10^3/uL (1.8-6.8); NEUTROPHILS % (AUTO) 55 % (42-75); PLATELET COUNT 149 x10^3/uL (130-400); RED BLOOD COUNT 3.79 x10^6/uL (3.82-5.3); RED CELL DISTRIBUTION WIDTH 13.6 % (9.6-15.2)
[2019-12-03 06:33] LABS: ALBUMIN 3.2 g/dL (3.4-5.0); ANION GAP 7 mmol/L (5-15); CALCIUM 8.1 mg/dL (8.5-10.1); CHLORIDE 100 mmol/L (98-107)
[2019-12-03 06:38] LABS: ALANINE AMINOTRANSFERASE 39 U/L (12-78); ALKALINE PHOSPHATASE 79 U/L (45-117); BILIRUBIN,TOTAL 1.5 mg/dL (0.2-1.0); CHOL/HDL RATIO 1.9; CHOLESTEROL, TOTAL 120 mg/dL (140-239); CREATININE 0.53 mg/dL (0.55-1.02); HDL CHOL % 52 % (28-40); HDL CHOLESTEROL (DIRECT) 62 mg/dL (40-60); LDL CHOLESTEROL,CALCULATED 20 mg/dL (54-169); LDL/HDL RATIO 0.3 (0.5-3.0); TOTAL PROTEIN 6.1 g/dL (6.4-8.2); TRIGLYCERIDES 191 mg/dL (50-200); VLDL CHOLESTEROL 38 mg/dL (0-25)
[2019-12-03 07:20] VITALS: BP 122/71
[2019-12-03] MEDS ORDERED: ACETAMINOPHEN 500 MG TABLET PO PRN (10:00)
[2019-12-03] MEDS ORDERED: LIPA1CAP61 PO (11:32)
[2019-12-03] MEDS ORDERED: ACET500T64 PO (11:32)
[2019-12-03] MEDS ORDERED: PANCRELIPASE 24,000 CAPSULE.DR PO SCH (16:00)
== END 2019-12-03 13:15 | disposition home or self-care (01) | DRG 439 ==
LOC: ED 14:43 → INTOOBSV 14:56 → EDIP 14:56 → 3N 15:36 → OBSVTOIN 12-02 14:54
PROVIDERS: ADMIT Internal Medicine; ATTEND Internal Medicine
DX: K85.20 Alcohol induced acute pancreatitis without necrosis or infection (principal); E87.2 Acidosis; Z16.12 Extended spectrum beta lactamase (ESBL) resistance; B96.20 Unspecified Escherichia coli [E. coli] as the cause of diseases classified elsewhere; E86.0 Dehydration; F10.20 Alcohol dependence, uncomplicated; Y90.9 Presence of alcohol in blood, level not specified; F17.200 Nicotine dependence, unspecified, uncomplicated; G89.29 Other chronic pain; K76.0 Fatty (change of) liver, not elsewhere classified; M79.7 Fibromyalgia; Z90.49 Acquired absence of other specified parts of digestive tract; Z90.710 Acquired absence of both cervix and uterus; Z88.5 Allergy status to narcotic agent; Z88.8 Allergy status to other drugs, medicaments and biological substances
CPT/HCPCS: 36415; 74022; J3490; 74177; 80048; 80053; 80061; 81001; 82010; 82787; 83690; 83735; 84100; 85025; 87077; 87086; 87184; 87186; 93005; G0378; J1170; J1650; J1885; J2405; Q9967; J7120

== ENCOUNTER 2020-02-25 13:15 | Emergency (ER) | payer OTHER ==
[~2020-02-25] VITALS: Ht 154.9 cm; Wt 49.7 kg
[~2020-02-25 13:15] MED LIST changes: +ACET500T64 PO; +LIPA1CAP61 PO; +ONDA4TAB7 PO
[2020-02-25 13:29] VITALS: BP 95/66
[2020-02-25] MEDS ORDERED: HYDROcodone/APAP 5/325 TABLET PO ONE (14:00)
[2020-02-25] MEDS ORDERED: MECLIZINE CHEWABLE 25 MG TAB PO ONE (14:00)
[2020-02-25] MEDS ORDERED: HYDROcodone/APAP 5/325 TABLET ONE (14:10)
[2020-02-25] MEDS ORDERED: MECLIZINE CHEWABLE 25 MG TAB ONE (14:10)
[2020-02-25 14:16] LABS: BASOPHILS # (AUTO) 0.02 x10^3/uL (0-0.1); BASOPHILS % (AUTO) 0 % (0-1); EOSINOPHILS # (AUTO) 0.03 x10^3/uL (0-0.4); EOSINOPHILS % (AUTO) 1 % (1-7); LYMPHOCYTES # (AUTO) 2.02 x10^3/uL (1-3.4); LYMPHOCYTES % (AUTO) 40 % (22-44); MD NO; MEAN CORPUSCULAR HEMOGLOBIN 34.6 pg (27.0-34.8); MEAN CORPUSCULAR HGB CONC 34.6 g/dL (32.4-35.8); MEAN CORPUSCULAR VOLUME 99.9 fL (80-100); MEAN PLATELET VOLUME 6.2 fL (7.4-10.4); MONOCYTES % (AUTO) 14 % (2-9); NEUTROPHILS # (AUTO) 2.25 x10^3/uL (1.8-6.8); NEUTROPHILS % (AUTO) 45 % (42-75); PLATELET COUNT 239 x10^3/uL (130-400); RED BLOOD COUNT 3.98 x10^6/uL (3.82-5.3); RED CELL DISTRIBUTION WIDTH 14.4 % (9.6-15.2)
[2020-02-25 14:24] LABS: ALBUMIN 3.3 g/dL (3.4-5.0); ANION GAP 11 mmol/L (5-15); CALCIUM 8.9 mg/dL (8.5-10.1); CHLORIDE 111 mmol/L (98-107); CREATININE 0.56 mg/dL (0.55-1.02)
--- NOTE | 2020-02-25 14:25 | NUR ---
TASK RN, ASSISTING PRIMARY RN. PT MEDICATED PER EMAR. BP CUFF, PULSE OX IN PLACE, SR UP X 2. FAMILY AT BS. CALL LIGHT WITHIN REACH, PT TO CT.
== END 2020-02-25 15:13 | disposition home or self-care (01) ==
LOC: ED 14:09
DX: S09.90XA Unspecified injury of head, initial encounter (principal); R42 Dizziness and giddiness; R94.31 Abnormal electrocardiogram [ECG] [EKG]; Z90.49 Acquired absence of other specified parts of digestive tract; Z90.89 Acquired absence of other organs; Z90.710 Acquired absence of both cervix and uterus; Z87.891 Personal history of nicotine dependence; W01.0XXA Fall on same level from slipping, tripping and stumbling without subsequent striking against object, initial encounter; Y93.89 Activity, other specified; Y92.098 Other place in other non-institutional residence as the place of occurrence of the external cause; Y99.8 Other external cause status
CPT/HCPCS: 36415; 70450; 80048; 82040; 85025; 93005; 99285

== ENCOUNTER 2020-03-01 05:44 | Day surgery (SDC) | payer OTHER ==
[~2020-03-01] VITALS: Ht 157.5 cm; Wt 51.2 kg
[2020-03-01] MEDS ORDERED: LACTATED RINGERS 1,000 ML IV SCH (06:17)
[2020-03-01] MEDS ORDERED: LIPA1CAP45 PO (06:20)
[2020-03-01] MEDS ORDERED: CHLORHEXIDINE 15 ML UDC MM ONE (06:30)
[2020-03-01] MEDS ORDERED: TRAM50TA2 PO (06:49)
[2020-03-01 06:50] VITALS: BP 145/81
[2020-03-01] MEDS ORDERED: PROPOFOL 50 ML ONE (07:21)
[2020-03-01] MEDS ORDERED: ROCURONIUM 10 MG/ML,10ML ONE (07:48)
[2020-03-01] MEDS ORDERED: ONDANSETRON 2MG/ML, 2ML ONE ×2 (07:48→08:10)
[2020-03-01] MEDS ORDERED: FENTANYL PF 100 MCG/2ML ONE (08:03)
[2020-03-01] MEDS ORDERED: PROPOFOL 10 MG/ML, 20ML ONE (08:10)
[2020-03-01] MEDS ORDERED: SUCCINYLCHOLINE 20 MG/ML, 10ML ONE (08:10)
[2020-03-01] MEDS ORDERED: FENTANYL PF 100 MCG/2ML IV PRN (08:30)
[2020-03-01] MEDS ORDERED: MEPERIDINE/PF 25MG/ML,1ML IVPush PRN (08:30)
[2020-03-01] MEDS ORDERED: EPHEDRINE 50 MG/ML, 1ML IVPush PRN (08:30)
[2020-03-01] MEDS ORDERED: ONDANSETRON 2MG/ML, 2ML IV PRN (08:30)
[2020-03-01] MEDS ORDERED: MIDAZOLAM 1 MG/ML, 2ML IV PRN (08:30)
[2020-03-01] MEDS ORDERED: ONDANSETRON ODT 8 MG PO PRN (08:30)
[2020-03-01] MEDS ORDERED: PROMETHAZINE 25 MG/ML, 1ML IV PRN (08:30)
[2020-03-01] MEDS ORDERED: METOPROLOL 1 MG/ML, 5ML IV PRN (08:30)
[2020-03-01] MEDS ORDERED: DIPHENHYDRAMINE 50 MG/ML, 1ML IVPush PRN (08:30)
[2020-03-01] MEDS ORDERED: EPHEDRINE 50 MG/ML, 1ML IM PRN (08:30)
== END 2020-03-01 10:25 | disposition home or self-care (01) ==
LOC: OUT 05:44
PROVIDERS: ATTEND Internal Medicine
DX: K85.90 Acute pancreatitis without necrosis or infection, unspecified (principal); F41.9 Anxiety disorder, unspecified; M79.7 Fibromyalgia; M19.90 Unspecified osteoarthritis, unspecified site; Z79.891 Long term (current) use of opiate analgesic; Z79.899 Other long term (current) drug therapy; Z85.41 Personal history of malignant neoplasm of cervix uteri; Z87.891 Personal history of nicotine dependence; Z88.5 Allergy status to narcotic agent; Z88.8 Allergy status to other drugs, medicaments and biological substances; Z82.3 Family history of stroke; Z82.49 Family history of ischemic heart disease and other diseases of the circulatory system; Z80.1 Family history of malignant neoplasm of trachea, bronchus and lung
CPT/HCPCS: 43259; J0330; J2405; J2704; J3010; J7120

== ENCOUNTER 2020-09-16 13:18 | Emergency (ER) | payer OTHER ==
[~2020-09-16] VITALS: Ht 154.9 cm; Wt 46.0 kg
[~2020-09-16 13:18] MED LIST changes: +LIPA1CAP45 PO; -MERO1VIA15 IV; +MERO1VIA24 IV; +MULT-449 PO; -MULT1TAB60 PO
--- NOTE | 2020-09-16 13:30 | NUR ---
LATE ENTRY DUE TO PATIENT CARE: PATIENT BIB [facility] FOR CHIEF C/O COUGH FOR ONE WEEK, DEVELOPED FATIGUE, FEVER, & NAUSEA FOR PAST TWO DAYS. PATIENT STATES SHE WAS TESTED FOR COVID-19 IN JULY AND IT WAS NEGATIVE. PER EMS PATIENT'S VITALS STABLE EN ROUTE, BLOOD SUGAR 102. NO SIGNS OF ACUTE DISTRESS, CALL LIGHT WITHIN REACH, CONNECTED TO INK GRINDER.
[2020-09-16] MEDS ORDERED: ACETAMINOPHEN 325 MG TABLET ONE (13:51)
[2020-09-16] MEDS ORDERED: SODIUM CHLORIDE FLUSH 10ML SYR IVF ONE (14:00)
[2020-09-16] MEDS ORDERED: ACETAMINOPHEN 325 MG TABLET PO ONE (14:00)
[2020-09-16] MEDS ORDERED: SODIUM CHLORIDE 0.9% 1,000ML IVBOLUS ONE (14:00)
--- NOTE | 2020-09-16 14:00 | NUR ---
X-RAY TECH AT BEDSIDE.
[2020-09-16 14:24] LABS: ALBUMIN 3.3 g/dL (3.4-5.0); ANION GAP 11 mmol/L (5-15); CALCIUM 9.2 mg/dL (8.5-10.1); CHLORIDE 99 mmol/L (98-107)
[2020-09-16 14:25] LABS: CREATININE 0.66 mg/dL (0.55-1.02)
[2020-09-16 14:28] LABS: MEAN CORPUSCULAR HGB CONC 34.8 g/dL (32.4-35.8); MEAN PLATELET VOLUME 7.6 fL (7.4-10.4); PLATELET COUNT 144 x10^3/uL (130-400); RED BLOOD COUNT 4.12 x10^6/uL (3.82-5.3); RED CELL DISTRIBUTION WIDTH 18.4 % (9.6-15.2)
[2020-09-16 14:55] LABS: MD YES
[2020-09-16] MEDS ORDERED: DEXAMETHASONE 4 MG TABLET PO ONE (15:30)
[2020-09-16] MEDS ORDERED: DEXAMETHASONE 4 MG TABLET ONE (15:40)
[2020-09-16 15:44] VITALS: BP 110/78
--- NOTE | 2020-09-16 15:46 | NUR ---
PATIENT MEDICATED PER eMAR, AMBULATED WITH STEADY GAIT TO BATHROOM AND BACK TO [facility].
[2020-09-16 15:49] LABS: BAND#(MANUAL) 0.06 x10^3/uL; BANDS%(MANUAL) 2 % (0-7); BASOS#(MANUAL) 0.03 x10^3/uL (0-0.1); BASOS% (MANUAL) 1 % (0-1); LYMPHS% (MANUAL) 31 % (22-44); MONOS#(MANUAL) 0.46 x10^3/uL (0.3-2.7); MONOS% (MANUAL) 16 % (2-9); REACTIVE LYMPHS # (MANUAL) 0.09 x10^3/uL (0-0); REACTIVE LYMPHS % (MANUAL) 3 % (0-0); SEG#(MANUAL) 1.36 x10^3/uL (1.8-6.8); SEGS% (MANUAL) 47 % (42-75)
[2020-09-16 15:50] LABS: <PLATELET ESTIMATE> ADEQUATE; <PLT MORPHOLOGY> NORMAL PLT MORPH
[2020-09-16 15:51] LABS: POLYCHROMASIA 1+
--- NOTE | 2020-09-16 16:36 | NUR ---
Patient given discharge instructions and prescription and they have confirmed that they understand the instructions. Patient in stable condition ambulatory with steady gait from ED to uber vehicle.
== END 2020-09-16 16:37 | disposition home or self-care (01) ==
LOC: ED 15:30
DX: U07.1 COVID-19 (principal); J06.9 Acute upper respiratory infection, unspecified; R07.89 Other chest pain; R50.9 Fever, unspecified; R05 Cough; R11.2 Nausea with vomiting, unspecified; R06.02 Shortness of breath; R53.1 Weakness; R00.0 Tachycardia, unspecified; Z90.89 Acquired absence of other organs; Z90.49 Acquired absence of other specified parts of digestive tract; Z90.710 Acquired absence of both cervix and uterus
CPT/HCPCS: 71045; 80048; 82040; 85025; 87635; 93005; 96360; 99285; J7030